=== PATIENT | male | born 1965 | race Caucasian/White ===

== ENCOUNTER → 2023-11-23 10:00 | Outpatient (REF) | payer OTHER, SELFPAY ==
[2023-11-23 10:36] LABS: ALT (SGPT) 26 U/L (0-50); AST (SGOT) 42 U/L (17-59); Albumin 3.7 g/dl (3.5-5.0); Alkaline Phosphatase 117 U/L (38-126); Blood Urea Nitrogen 17 mg/dl (9-20); Calcium 9.3 mg/dl (8.4-10.2); Carbon Dioxide 24 mmol/L (22-30); Chloride 106 mmol/L (98-107); Glucose 84 mg/dl (70-99); HDL Cholesterol 41 mg/dl; LDL Cholesterol, Calculated 52 mg/dl; Potassium 4.4 mmol/L (3.5-5.1); Sodium 138 mmol/L (135-145); Total Cholesterol 106 mg/dl (50-199); Total Protein 6.7 g/dl (6.3-8.2); Triglyceride 68 mg/dl (10-149); Very Low Density Lipoprotein 13 mg/dl (0-30); eGFR > 60.00
[2023-11-23 12:50] LABS: Glycohemoglobin (HgbA1c) 5.6 % (4.0-5.6)
[2023-12-02 09:15] LABS: Coumadin (Warfarin) 0.79 mcg/mL
== END ==
LOC: REG 10:00
PROVIDERS: ATTENDING PHYSICIAN Student in an Organized Health Care Education/Training Program
DX: E11.42 Type 2 diabetes mellitus with diabetic polyneuropathy (principal); Z79.01 Long term (current) use of anticoagulants
CPT/HCPCS: 36415; 80053; 80061; 80375; 83036

== ENCOUNTER 2023-12-03 14:02 | Inpatient (IN) | payer OTHER, SELFPAY ==
[2023-12-03 10:06] VITALS: BP 113/45
--- NOTE | 2023-12-03 10:55 | ED.GENMED ---
History of Present Illness
General
Chief Complaint: Musculo-Skeletal Complaint
Source: patient
Exam Limitations: none
Time Seen by Provider: 12/03/23 10:31
Nursing documentation reviewed up to this point in time: agreed with
Travel History
Have you had any contact with someone who has COVID-19?: No
Do you have any symptoms of coronavirus? Fever > 100 degrees, chills, cough, shortness of breath, sore throat, loss of taste or smell, muscle aches, or headache?: No
History of Present Illness
History of Present Illness:
58-year-old male presents to the ER for evaluation. Patient was sent by [facility] clinic and sent here to the ER.
Patient reports he has a history of a ' clotting disorder,' and olu-vtrypob-cssaachza diabetes. In previous records it is documented that patient is on Coumadin for history of right lower extremity DVT. IT is documented from family practice clinic
patient is a poorly controlled diabetic. He has had an open wound on the plantar surface of his big toe since August 2023 which is gotten progressively worse. There is suspicion for possible osteomyelitis. He has had increasing swelling from
his right foot to his right mata for the past week. He was seen by [facility] yesterday started on antibiotics recommended to come to the ER but presented to the ER this morning.
He denies any fever or chills.
Past History
Past History
ED Past Medical History: None
ED Past Surgical History: None and Tonsilectomy
Social History
Tobacco: Other (tobacco)
Alcohol: Occasional
Employment: Employed
Review of Systems
Review of Systems
Allergies reviewed?: Yes
All Other Systems: ROS reviewed and negative except as documented in HPI and ROS
Constitutional: Reports no symptoms
Respiratory: Reports no symptoms
Cardiac: Reports no symptoms
ABD/GI: Reports no symptoms
: Reports no symptoms
Musculoskeletal: Reports other (swelling to right great toe with swelling to foot and right lower leg + pain )
Skin: Reports no symptoms
Neurological: Reports no symptoms
Hematologic/Lymphatic: Reports no symptoms
Psychiatric: Reports no symptoms
Phy Exam
General Physical Exam
General Presentation: no apparent distress
General age: appears stated age
General Skin: warm and dry
General Habitus: normal
General Mental: alert
General Hydration: appears well hydrated
Cardiovascular Exam
Cardiovascular Exam: regular rate/rhythm, no murmur and normal peripheral pulses
Pulmonary Exam
Pulmonary Exam: lungs clear and no respiratory distress
Neurological Exam
Neurological Exam: alert and oriented x3
Musculoskeletal Exam
Musculoskeletal Exam: other (Right lower extremity strong pulses patient has obvious necrotic looking ulcer to the plantar aspect of the right great toe with swelling of this toe, foul smell there is swelling extending to right foot and right lower
leg with mild redness. No obvious drainage. )
Skin Exam
Skin Exam: normal color and warm/dry
Psychiatric Exam
Psychiatric Exam: normal mood/affect
Course
Orders/Labs/Results
Orders:
Orders
12/03/23 10:53
Cardiac Monitoring- Treatment ONCE
IV Insert/Care/Rem.- Treatment PRN
12/03/23 10:54
Foot, Right 3 View [CR Foot - Right Min 3 Views] Urgent
Comment:
Reason For Exam: right great toe infection
12/03/23 11:09
Cefepime HCl [Maxipime] 1,000 mg IV NOW STA
MetroNIDAZOLE 500 MG/100 ML [Flagyl 500 mg] 100 ml IV NOW
12/03/23 11:13
Complete Blood Count/With Diff Urgent
Comprehensive Metabolic Panel Urgent
Lactic Acid Q4H
Comment: CANCEL 2nd LACTIC ACID IF 1st LACTIC ACID IS LESS THAN 2
Prothrombin Time Urgent
Blood Culture Q30M
SAKINA Source: Blood/Venous
Specimen Description:
Blood Culture Q30M
SAKINA Source: Blood/Venous
Specimen Description:
12/03/23 11:44
Vancomycin [Vancocin] 2,000 mg 0.9% Sodium Chloride 500 ml [Nss] 500 ml IV NOW
12/03/23 13:05
Urinalysis Reflex To Culture Urgent
Date Specimen was Collected: 12/03/23
Time Specimen was Collected: 13:03
12/03/23 13:26
Admit/Transfer Patient As Directed
Co-Sign Provider:
Level of Care: Inpatient admission
Assign to:: Medical/Surgical
Physician / Group: kailee jaffe
Diagnosis: right great toe ulcer
Reason for Hospitalization: right great toe ulcer
Expected length of stay greater than two midnights?: Yes
ELOS- Estimated Length of Stay in days: 3
I certify the patient meets the requirements for IP care: Yes
12/03/23 13:28
Code Status As Directed
Resuscitation Status: Full Code
12/03/23 13:42
MR Right Le Joint W W/o Routine
Comment:
Reason For Exam: right toe, swelling, pain
Recent pill cam endoscopy?: Yes
12/03/23 15:00
Lactic Acid Q4H
Comment: CANCEL 2nd LACTIC ACID IF 1st LACTIC ACID IS LESS THAN 2
Abnormal Lab Results
12/03/23
11:13
RBC 4.19 L 10^6/uL
(4.70-6.10)
Hgb 11.3 L g/dL
(13.0-18.0)
Hct 34.7 L %
(39.0-52.0)
MCHC 32.6 L g/dL
(33.0-37.0)
MPV 10.8 H fL
(7.4-10.4)
Absolute Lymphs (auto) 0.9 L 10^3/uL
(1.2-3.4)
Absolute Monos (auto) 0.8 H 10^3/uL
(0.1-0.6)
Lymphocytes % 13.0 L %
(20.5-51.1)
Monocytes % 11.4 H %
(1.7-9.3)
PT 19.2 H Sec
(11.4-14.6)
Glucose 112 H mg/dl
(70-99)
Alkaline Phosphatase 152 H U/L
(38-126)
12/03/23 11:13
12/03/23 11:13
Vital Signs
Initial and Last Documented VS:
Initial Vital Signs
Temp Pulse Resp BP Pulse Ox
98.3 F 102 18 113/45 99
12/03/23 10:06 12/03/23 10:06 12/03/23 10:06 12/03/23 10:06 12/03/23 10:06
Last Documented Vital Signs
Temp Pulse Resp BP Pulse Ox
98.3 F 98 17 113/45 99
12/03/23 10:06 12/03/23 13:06 12/03/23 13:06 12/03/23 10:06 12/03/23 13:06
Lock Tender Chief Operator consulted with Physician
Lock Tender Chief Operator consulted with physician?: Yes
Name of Physician Consulted: Jacquelyn
MDM/Problems Addressed
Differential Diagnosis Includes:
Not limited to diabetic foot ulcer, cellulitis, osteomyelitis
MDM/Problems Addressed:
Patient is a 58-year-old diabetic male sent to the ER for infected great toenail with worsening swelling of the right foot. Patient presents awake and alert he is in obvious swollen right great toe with necrotic ulcer along the plantar aspect with
foul smell, there is swelling to the entire foot going up to the mata. He denies any fever or chills and has a normal white count normal lactic acid. X-rays show soft tissue swelling bee sting to the right great toe but no convincing evidence on
x-ray for osteomyelitis. Patient will require admission for antibiotic podiatry/Ortho evaluation.
Chronic conditions affecting care:
niddm
*Radiology
Radiology exam reviewed: radiology read reviewed
*Pulse Oximetry
Patient hypoxic: no
*Critical Care Note
Total Time (30-74mins, 75-104mins- exclusive of procedures): Not Applicable
ED Attending Note
-
Portions of this chart may have been created with voice recognition software.� Occasional wrong word or��sound alike� substitutions may have occurred due to the inherent limitations of voice recognition software.
Discharge Plan
Departure
Patient Disposition: Admit
Date of Disposition: 12/03/23
Time of Disposition: 12:23
Admit to: Med/Surg
Admit to doctor: hospitalist
Presentation/result/management discussed w/ accepting MD/DO: Hospitalist
Patient with high blood pressure during this ER visit?: No
Condition: Fair
Covid-19: Not Applicable
Discharge Problem:
Diabetic foot ulcer
Prescriptions:
No Action
atorvastatin [Lipitor] 10 mg Tablet
10 mg PO DAILY
warfarin [Jantoven] 10 mg tablet
5 mg PO DAILY
glipizide 5 mg tablet
5 mg PO BID@0800,1700
cephalexin 500 mg Capsule
500 mg PO QID 7 Days Qty: 28 0RF
Patient Comments:
12/03/2023, pt. filled this med. on 12/02/2023 and is instructed to take one capsule QID for 5 days; per pt., he took first dose of this med. last night (12/02/2023).
acetaminophen [Tylenol Extra Strength] 500 mg Tablet
1,000 mg PO BIDPRN PRN (Reason: mild pain)
cholecalciferol (vitamin D3) 25 mcg (1,000 unit) Tablet
50 mcg PO DAILY
Referrals:
UNKNOWN - PT DOES,NOT KNOW [Family Provider] -
Interventions
Interventions:
*Risk Screen - Suicide Last Done: 12/03/23 11:28
*General Assessment Last Done: 12/03/23 11:28
*Neglect/Abuse Screening Last Done: 12/03/23 11:28
ED- Fall Risk Assessment Last Done: 12/03/23 11:30
*ED COVID-19 Vaccine History Last Done: 12/03/23 11:28
ED-Musculoskeletal Assessment Last Done: 12/03/23 11:30
[2023-12-03 11:27] VITALS: BMI 28.2
[2023-12-03 11:36] LABS: % Basophils 0.7 % (0-2); % Eosinophils 2.9 % (0-6); % Immature Granulocytes 0.3 % (0-0.5); % Monocytes 11.4 % (1.7-9.3); % Neutrophils 71.7 % (42.2-75.2); Absolute Basophils 0.1 10^3/uL (0-0.2); Absolute Eosinophils 0.2 10^3/uL (0-0.7); Absolute Lymphocytes 0.9 10^3/uL (1.2-3.4); Absolute Monocytes 0.8 10^3/uL (0.1-0.6); Hematocrit 34.7 % (39.0-52.0); Hemoglobin 11.3 g/dL (13.0-18.0); Mean Corp Hgb Conc. 32.6 g/dL (33.0-37.0); Mean Corpuscular Volume 82.8 fL (80.0-94.0); Mean Platelet Volume 10.8 fL (7.4-10.4); Nucleated Red Blood Cells % 0 % (-); Platelet Count 173 10^3/uL (130-400); Red Blood Cell Count 4.19 10^6/uL (4.70-6.10); Red Cell Dist. Width 13.4 % (11.5-14.5); White Blood Cell Count 6.9 10^3/uL (4.8-10.8)
[2023-12-03] MEDS: MAXIPIME 1000 MG IV (11:42)
[2023-12-03 11:45] LABS: INR 1.64; PT 19.2 Sec (11.4-14.6)
[2023-12-03] MEDS: FLAGYL 500 MG 100 IV ×2 (11:46→20:22)
[2023-12-03 11:47] LABS: ALT (SGPT) 31 U/L (0-50); AST (SGOT) 33 U/L (17-59); Albumin 3.5 g/dl (3.5-5.0); Alkaline Phosphatase 152 U/L (38-126); Blood Urea Nitrogen 18 mg/dl (9-20); Calcium 8.7 mg/dl (8.4-10.2); Carbon Dioxide 27 mmol/L (22-30); Chloride 106 mmol/L (98-107); Estimated Creatinine Clearance 92 ml/min; Glucose 112 mg/dl (70-99); Lactic Acid 0.8 mmol/L (0.7-2.0); Sodium 137 mmol/L (135-145); Total Protein 6.8 g/dl (6.3-8.2); eGFR > 60.00
[2023-12-03] MEDS: VANCOCIN 540 MG IV (12:58)
--- NOTE | 2023-12-03 13:01 | HPS.HSE ---
Addendum entered and electronically signed by Maricruz Porter MD 12/03/23 15:28:
I saw and examined the patient.
The MANAGER FINE's note was reviewed and I agree with the note.
Comment:
Mr. Titi Farah is a 58 yo man with hx DM2, LE DVT, HLD presents to the ER with acute worsening chronic wound of left great toe. Triage vitals T 98.3, P 102, RR 18, BP 113/45, SpO2 99%. Labs with WBC 6.9, Cr 0.8. Foot X-ray without convincing
evidence of osteomyeltis.
Patient was given Vanc/Cefepime/Flagyl in ER. Will continue. Will admit to medicine with Podiatry consult. MRI ordered. Hold coumadin in anticipation of need for procedure/debridement.
Foot X-Ray
IMPRESSION: Soft tissue swelling adjacent to the right great toe. There is deformity of the outline of the peripheral plantar soft tissues adjacent the great toe, which is likely from ulceration.
Compared to previous right total radiographs, poor definition of the bony margins of the distal phalanx of the right great toe, probably technical rather than due to bone destruction. No convincing evidence for ostial myelitis.
Consider further evaluation with dedicated right great toe radiographs, which may result in better definition of the bones of the right great toe, particularly on the lateral view.
�
Original Note:
Family Physician
-
Family Physician: NOT KNOW UNKNOWN - PT DOES
Chief Complaint
-
left great toe ulcer
History of Present Illness
58-year-old male past medical history for type 2 diabetes, right lower extremity DVT, hyperlipidemia presented to us with open wound on the plantar surface of his great toe. He had this wound since last August. patient stated worsening redness,
pain and swelling. Since discharge in last August, he could not follow-up with podiatry as he could not get any appointment. Patient feels very tired. Denied fever or chills. Patient denied any headache, dizziness, syncopal episode. Patient
denied chest pain, short of breath. Patient denied abdominal pain, nausea, vomiting, diarrhea. Patient denied dysuria hematuria.
Patient was evaluated by residency clinic last night and was sent home on oral antibiotics.
Medical History
Past Medical History
Past Medical History: Reports Other
Additional Past Medical History:
Right lower extremities DVT
Type 2 diabetes
Hyperlipidemia
Past Surgical History: Reports Other
Additional Past Surgical History:
Tonsillectomy
Hydrocele repair
Social History
Tobacco: Smoker (Cigars occasionally)
Alcohol: Occasional
Drug: None
Family History
Family History: Not pertinent
Allergies / Home Medications
Allergies reflects when Allergies were last updated in [facility].
Home Medications with original date entered in [facility]
Allergy/Medication List:
Allergies
Allergy/AdvReac Type Severity Reaction Status Date / Time
Penicillins Allergy Unknown Verified 07/14/23 13:46
Home Medications
atorvastatin 10 mg tablet (Lipitor) 10 mg PO DAILY High Cholesterol 07/14/23
warfarin 10 mg tablet (Jantoven) 5 mg PO DAILY Blood Clot Prevention/Tx 07/14/23
glipizide 5 mg tablet 5 mg PO BID@0800,1700 Diabetes 07/15/23
cephalexin 500 mg capsule 500 mg PO QID 7 days #28 caps 07/17/23
acetaminophen 500 mg tablet (Tylenol Extra Strength) 1,000 mg PO BIDPRN PRN mild pain 12/03/23
cholecalciferol (vitamin D3) 25 mcg (1,000 unit) tablet 50 mcg PO DAILY 12/03/23
Review of Systems
-
Constitutional: Reports No Symptoms
EENT: Reports No Symptoms
Respiratory: Reports No Symptoms
Cardiac: Reports No Symptoms
Abdomen/GI: Reports No Symptoms
: Reports No Symptoms
Musculoskeletal: Reports No Symptoms
Skin: Reports Other (Right great toe wound)
Neurological: Reports No Symptoms
Endocrine: Reports No Symptoms
Hematologic/Lymphatic: Reports No Symptoms
Psych: Reports No Symptoms
Physical Exam
Vital Signs
Vital Signs
Temp Pulse Resp BP Pulse Ox
98.3 F 102 18 113/45 99
12/03/23 10:06 12/03/23 10:06 12/03/23 10:06 12/03/23 10:06 12/03/23 10:06
Physical Exam
General: Well Developed, Well Nourished and No Apparent Distress
HEENT: NormoCephalic, Moist mucous membranes and Atraumatic
Respiratory: Clear
Cardiac: S1/S2 and Regular Rhythm; No Murmur or Rub
GI: Soft, Non Tender, Non Distended and Normal Bowel Sounds; No Organomegaly
Rectal: Deferred by Provider
Musculoskeletal: No Clubbing, No Cyanosis and No Edema
Skin: Rash and Other (Right lower extremitynecrotic looking ulcer to the plantar aspect of the right great toe with swelling of this toe, foul smell there is swelling extending to right foot and right lower leg with mild redness.)
Neuro: AO x 3 and Nonfocal/grossly intact
Psych: Calm
Laboratory Results
-
12/03/23 11:13
12/03/23 11:13
Laboratory Results
PT 19.2 Sec (11.4-14.6) H 12/03/23 11:13
INR 1.64 12/03/23 11:13
Lactic Acid 0.8 mmol/L (0.7-2.0) 12/03/23 11:13
Total Bilirubin 1.0 mg/dl (0.2-1.3) 12/03/23 11:13
AST 33 U/L (17-59) 12/03/23 11:13
ALT 31 U/L (0-50) 12/03/23 11:13
Alkaline Phosphatase 152 U/L (38-126) H 12/03/23 11:13
Data Reviewed
-
Lab Data: Labs Reviewed by me
Impression/Plan
-
#diabetic great toe ulcer
-Foot x-ray with Soft tissue swelling adjacent to the right great toe. There is deformity of the outline of the peripheral plantar soft tissues adjacent the great toe, which is likely from ulceration.Compared to previous right total radiographs,
poor definition of the bony margins of the distal phalanx of the right great toe, probably technical rather than due to bone destruction. No convincing evidence for ostial myelitis.
-Blood culture sent from ER
-iv cefepime, vanco and Flagyl
-Tylenol prn for fever
-Podiatry consulted
# Anemia of chronic disease
-Hemoglobin 11.3
-No active bleeding
-Continue to monitor
#�History of right lower extremity DVT
-hold Coumadin in anticipation of surgical intervention
# HLD
-statin continued
#type 2 Dm
-sliding scale
-CHO diet
-hold glipizide
#Full code
#DVT prophylaxis�Coumadin
[2023-12-03 13:05] VITALS: BP 131/82
[2023-12-03 13:48] LABS: Urine Albumin Negative (Neg - Trace); Urine Bilirubin 1+ (Negative); Urine Character Clear (Clear); Urine Color Yellow; Urine Glucose Negative (Negative); Urine Ketone Negative (Negative); Urine Leukocyte Trace (Negative); Urine Nitrite Negative (Negative); Urine Occult Blood Trace (Negative); Urine Urobilinogen 3+ (Neg - 1+)
[2023-12-03 14:00] VITALS: BP 121/83
[2023-12-03 14:02] LABS: Urine Bacteria Many (Negative); Urine Red Blood Cell 0-2 /HPF (0-2); Urine White Cell 0-2 /HPF (0-5)
--- NOTE | 2023-12-03 16:59 | PHA.VAN.IN ---
Assessment
- Assessment
Renal Function: Appears similar to baseline
Concomitant Antimicrobials: cefepime
AUC Dosing Plan
- Dosing Variables
Dosing Weight (kg): 79.2
Dosing CrCl (ml/min): 92
Vd coefficient (L/kg): 0.7
- Empiric Dosing
Initial / Loading Dose: vanc 2000mg
Maintenance Regimen: vanc 1000mg Q12 starting 12/03 06
Estimated AUC (mcg*h/mL): 465
Estimated Peak (mcg*h/mL): 29.1
Estimated Trough (mcg/ml): 12
Estimated Half Life (H): 8.6
- Monitoring
No levels ordered at this time: consider levels in next few days
Pharmacokinetics Vancomycin I
- -
Patient Age: 58
Patient Sex: Male
Vancomycin Day #: 1
Indication: Skin And Soft Tissue
Requesting Provider: Rachael Valencia
Pertinent Antimicrobial Allergies:
penicillin - unknown
Height / Weight:
Height 5 ft 6 in
Actual Weight 79.2 kg
- Vital Signs / Lab Results
Temp Pulse Resp BP Pulse Ox
98.3 F 93 21 121/83 95
12/03/23 10:06 12/03/23 14:15 12/03/23 14:15 12/03/23 14:00 12/03/23 14:15
Lab Results - Hematology
12/03/23
11:13
WBC 6.9
Lab Results - Chemistry
12/03/23
11:13
BUN 18
Creatinine 0.8
Estimated Creat Clear 92
Albumin 3.5
12/03/23
11:13
Lactic Acid 0.8
Lab Results - Urine
12/03/23
13:05
Urine Nitrite (Reflex) Negative
Leukocyte Esterase Rfl Trace A
Urine WBC (Reflex) 0-2
Urine Bacteria (Reflex) Many A
[2023-12-03 17:10] VITALS: BMI 28.1
[2023-12-03 17:11] VITALS: BP 111/72
[2023-12-03 17:36] LABS: Glucose - Point of Care 94 mg/dl (70-99)
--- NOTE | 2023-12-03 17:50 | PTCARENOTE ---
Received pt from R via stretcher; accompanied by ER staff. Pt AAO x3, YATES well, ambulatory to bed without assistance; gait steady. pt very angry/irritable re: admission; stated 'I f the fruit trimmer would have seen me this would never have
happened!'. VSS. On room air- pulse ox 98%. Abd soft, rounded, to start 2000 rashel diet. Pt DTV; stated he will void in BR. RT great toe dusky /reddened with dark/open area with dry callus posterior toe; RLR reddened, +1 edema. DSD applied to Rt
great toe site. Oriented to 4east, currently resting in bed. Will continue to monitor.
[2023-12-03] MEDS: STERILE WATER FOR INJECTION 10 ML IV (20:22)
[2023-12-03] MEDS: MAXIPIME 2000 MG IV (20:22)
[2023-12-03] MEDS: FLUSH (NSS) 1 FLUSH IV (20:23)
[2023-12-03 21:31] LABS: Glucose - Point of Care 129 mg/dl (70-99)
[2023-12-03 23:41] VITALS: BP 109/71
[2023-12-04] MEDS: FLAGYL 500 MG 100 IV ×3 (04:14→20:51)
[2023-12-04] MEDS: STERILE WATER FOR INJECTION 10 ML IV ×3 (04:15→20:36)
[2023-12-04] MEDS: MAXIPIME 2000 MG IV ×3 (04:19→20:36)
[2023-12-04] MEDS: VANCOCIN 200 IV ×2 (05:51→18:01)
[2023-12-04 07:00] VITALS: BP 122/73
[2023-12-04 07:40] LABS: Glucose - Point of Care 138 mg/dl (70-99)
[2023-12-04 07:53] LABS: INR 1.73; PT 20.4 Sec (11.4-14.6)
[2023-12-04 08:04] LABS: Hematocrit 31.2 % (39.0-52.0); Hemoglobin 10.2 g/dL (13.0-18.0); Mean Corp Hgb Conc. 32.7 g/dL (33.0-37.0); Mean Corpuscular Hgb 27.4 pg (27.0-31.0); Mean Corpuscular Volume 83.9 fL (80.0-94.0); Platelet Count 153 10^3/uL (130-400); Red Blood Cell Count 3.72 10^6/uL (4.70-6.10); Red Cell Dist. Width 13.4 % (11.5-14.5); White Blood Cell Count 6.5 10^3/uL (4.8-10.8)
[2023-12-04 08:13] LABS: Blood Urea Nitrogen 18 mg/dl (9-20); Calcium 8.3 mg/dl (8.4-10.2); Carbon Dioxide 23 mmol/L (22-30); Chloride 105 mmol/L (98-107); Estimated Creatinine Clearance 92 ml/min; Glucose 109 mg/dl (70-99); Potassium 4.1 mmol/L (3.5-5.1); Sodium 137 mmol/L (135-145); eGFR > 60.00
[2023-12-04] MEDS: TYLENOL 1000 MG PO ×2 (08:33→19:28)
[2023-12-04] MEDS: LIPITOR 10 MG PO (08:37)
--- NOTE | 2023-12-04 08:46 | W.PN.UPDATE ---
Update Note
Progress Note Update
Patient seen on AM rounds. Full consult note to follow.
Plan for OR tomorrow under the direction of Dr. Logan for right hallux amputation. NPO after midnight.
--- NOTE | 2023-12-04 08:55 | W.PN.HOSP.TC ---
Addendum entered and electronically signed by Won Cardenas MD 12/04/23 13:53:
Patient seen and examined
Discussed with resident
Discussed with infectious disease service
Impression/plan:
Right great toe diabetic ulcer with osteomyelitis
Type 2 diabetes
Tobacco use disorder smokes cigars
Chronic lower extremity DVT on anticoagulation with Coumadin.
No evidence of generalized infection.
MRI with confirmation of osteomyelitis.
Initiated on empiric antibiotics will continue.
For right hallux amputation on 12/04.
Follow path and culture.
Check arterial ultrasound
Type 2 diabetes
Noted improvement of hemoglobin A1c from 11-5.
Glipizide has been on hold pending OR/n.p.o. status
Continue corrective insulin with serial Accu-Cheks
Will consider to start metformin and avoid sulfonylureas given risk for hypoglycemia (reported as outpatient)
Lower extremity DVT.
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
Follow INR.
Patient currently insured
Case management consultation with factor Xa inhibitor pricing (Xarelto Eliquis)
Original Note:
Today's Communication/Plan
-
right hallux amputation
hold off warfarin
consider eliquis /xeralto after surgery
reconsider diabetic mediation regimen
Assessment / Plan
Assessment / Plan
IMPRESSION
Right hallux osteomyelitis
DM type 2 with neuropathy
History of right lower extremity DVT
PLAN
Right hallux osteomyelitis with cellulitis
-ID folllowing
- Blood cultures prelim no growth, final report pending
- Ordered arterial US with JASMIN to r/o PVD
-Plan for right hallux amputation tomorrow per Ortho, NPO after midnight
- Might not need abx after surgery if the source of infection is removed
- Continue IV zosyn for now - day 2
- Monitor temp curve, WBC.
-
DM type 2 with neuropathy
- Reconsider diabetic medication regimen
- On insulin sliding scale, hold glipizide
- Plan is to restart metformin 500 mg BID on discharge and discontinue glipizide to prevent hypoglycemia.
History of right lower extremity DVT
- hold off warfarin prior to surgery
- considering starting Eliquis or Xeralto after surgery to avoid monitoring PT/INR with warfarin
talked to family preservation caseworker about it
DVT ppx - hold warfarin prior to surgery tomorrow
Imaging :
12/03/2023 x-ray right foot: Focal soft tissue swelling involving the great toe.� Soft tissue deformity of the plantar soft tissues suggesting ulceration.� Bony definition on the lateral radiograph is poor, but no gross evidence for bony destruction.
12/03/2023 MRI right lower extremity: Acute osteomyelitis involving the entire first proximal phalanx and first distal phalanx.� There is a plantar medial first toe wound with a tract that extends directly to the first interphalangeal joint.� There
is a large amount of cellulitis around the first toe and a possible small focus of osteomyelitis in the head of the first metatarsal although this is noted to be less specific and could be degenerative in nature.
Anticipated Discharge: 24 - 48 hours
Subjective/Interval History
-
Date of Service: December 04, 2023
58-year-old male past medical history for type 2 diabetes, right lower extremity DVT, hyperlipidemia presented to us with open wound on the plantar surface of his right great toe.� He had this wound since last August. Patient stated worsening
redness, pain and swelling.� He was admitted in July 2023 for diabetic right foot infection associated with right great toe cellulitis with blister and callus in the medial hallux. He underwent R foot callus debridement by podiatry. He was
initially with vancomycin, cefepime, Flagyl; and these were changed to oral Keflex 500 mg and wound care upon discharge. Since discharge, he could not follow-up with podiatry as he could not get any appointment.�He admits feeling tired. � Denied
fever or chills.� Patient denied any headache, dizziness, syncopal episode.� Patient denied chest pain, short of breath.� Patient denied abdominal pain, nausea, vomiting, diarrhea.� Patient denied dysuria hematuria.
Patient was evaluated in Family medicine residency clinic last night and was sent home on oral antibiotics ( cephalexin 500 mg PO ) .
PCP - Dr Digna Sequeira.
Patient is furious that he will not be able to work after surgery.
Objective Data
-
Labs:
Laboratory Results
12/04/23
06:20
WBC 6.5
Hgb 10.2 L
Hct 31.2 L
Plt Count 153
PT 20.4 H
INR 1.73
Sodium 137
Potassium 4.1
Chloride 105
Carbon Dioxide 23
BUN 18
Creatinine 0.8
Glucose 109 H
Calcium 8.3 L
Vital Signs:
Vital Signs
Temp Pulse Resp BP Pulse Ox
99.3 F 83 16 109/71 99
12/03/23 23:41 12/03/23 23:41 12/03/23 23:41 12/03/23 23:41 12/03/23 23:41
I&O
12/03/23 12/04/23 12/05/23
06:59 06:59 06:59
Intake Total 440 / 440
Balance 440 / 440
Review of Systems
-
History Source: Patient
All other systems: Reviewed and negative
Psych: Reports Other (furious, irritated)
Physical Exam
-
General: Appears in Distress and Other (frustrated, furious )
HEENT: Normocephalic and Atraumatic
Respiratory: Clear to Auscultation
Cardiac: Regular Rhythm and S1/S2
Musculoskeletal: Other (edema iin right feet > left, jeanne wrapped )
Data Reviewed
-
Diagnostic Radiology: Report Reviewed by me and Discussed with Physician
Labs: Labs Reviewed by me and Discussed with Physician
--- NOTE | 2023-12-04 09:18 | PHA.VAN.FU ---
Vancomycin Assessment / Plan
- Assessment
Renal Function: Stable
WBC's are: WNL
In the past 24 hrs, patient has been: Afebrile
Concomitant Antimicrobials: cefepime, metronidazole
- Dosing Plan
Continue: Vanc 1000mg Q12H
- Monitoring Plan
No level(s) ordered at this time: consider levels in next few days
- Follow Up
Pharmacy will continue to follow.
Vancomycin Follow UP
- -
Patient Age: 58
Patient Sex: Male
Vancomycin Day #: 2
Indication: Skin And Soft Tissue
Requesting Provider: Rachael Valencia
Pertinent Antimicrobial Allergies:
penicillin - unknown
Height / Weight:
Height 5 ft 6 in
Actual Weight 79.061 kg
Pertinent Past Medical History: DM 2
- Vital Signs / Lab Results
Temp Pulse Resp BP Pulse Ox
99.3 F 83 16 109/71 99
12/03/23 23:41 12/03/23 23:41 12/03/23 23:41 12/03/23 23:41 12/03/23 23:41
Lab Results - Hematology
12/03/23 12/04/23
11:13 06:20
WBC 6.9 6.5
Lab Results - Chemistry
12/03/23 12/04/23
11:13 06:20
BUN 18 18
Creatinine 0.8 0.8
Estimated Creat Clear 92 92
Albumin 3.5
12/03/23 12/03/23
11:13 15:00
Lactic Acid 0.8 Cancelled
Lab Results - Urine
12/03/23
13:05
Urine Nitrite (Reflex) Negative
Leukocyte Esterase Rfl Trace A
--- NOTE | 2023-12-04 11:19 | CON.ORTHO ---
Consultation
-
Date/Time Consultation Requested: 12/03/2023; time unknown
Date/Time Consultation Performed: 12/04/2023; 0730
Requesting Provider: unknown
Performing Provider: Faby Gordon PA-C for Dr. Cyril Logan
Reason for Consultation: Right great toe infection
Consultation - Orthopedics
History
Mr. Farah is a 58 year old male with PMH of DMII, RLE DVT, HLD and bilateral peripheral neuropathy. He is seen today for evaluation of his right great toe. He reports he developed cellulitis and a blister on his great toe in August 2023.
He was seen and evaluated at [facility] and was advised to follow up with outpatient podiatry. He reports since his insurance activated on September 16, he was unable to secure an appointment with podiatry. He has noticed progressively
worsening redness, swelling and pain about his great toe. He endorses a wound on the plantar aspect of his great toe that has been draining.
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 He ambulates without assistance at baseline. He has been on Warfarin since his DVT this past fall.
Allergies / Home Medications
Allergy/AdvReac Type Severity Reaction Status Date / Time
Penicillins Allergy Unknown Verified 07/14/23 13:46
Medication Instructions Recorded
atorvastatin 10 mg tablet (Lipitor) 10 mg PO DAILY High Cholesterol 07/14/23
warfarin 10 mg tablet (Jantoven) 5 mg PO DAILY Blood Clot 07/14/23
Prevention/Tx
glipizide 5 mg tablet 5 mg PO BID@0800,1700 Diabetes 07/15/23
cephalexin 500 mg capsule 500 mg PO QID 7 days #28 caps 07/17/23
acetaminophen 500 mg tablet 1,000 mg PO BIDPRN PRN mild pain 12/03/23
(Tylenol Extra Strength)
cholecalciferol (vitamin D3) 25 50 mcg PO DAILY 12/03/23
mcg (1,000 unit) tablet
Vital Signs / Lab Results
Temp Pulse Resp BP Pulse Ox
99.3 F 83 16 109/71 99
12/03/23 23:41 12/03/23 23:41 12/03/23 23:41 12/03/23 23:41 12/03/23 23:41
12/04/23 06:20
12/04/23 06:20
XR Right Foot 12/03/23 IMPRESSION:
Soft tissue swelling adjacent to the right great toe. There is deformity of the outline of the peripheral plantar soft tissues adjacent the great toe, which is likely from ulceration.
Compared to previous right total radiographs, poor definition of the bony margins of the distal phalanx of the right great toe, probably technical rather than due to bone destruction. No convincing evidence for ostial myelitis.
MRI Right Foot 12/03/2023 IMPRESSION:
Acute osteomyelitis involving the entire first proximal phalanx and first distal phalanx. Plantar medial first toe wound with a tract that extends directly to the first interphalangeal joint. Large amount of cellulitis about the first toe. Possible
small focus of osteomyelitis in the head of the first metatarsal, although this is less specific and could be degenerative.
Directed exam of the right lower extremity reveals bandages with purulent drainage. Open wound on the plantar aspect of the right great toe with eschar/necrotic tissue surrounding the wound. Purulent drainage from the wound. Patient lacks sensation
to light touch throughout the foot. Strong pedal pulses.
Assessment / Plan
Right hallux osteomyelitis, plantar foot wound
--Unfortunately, MRI reveals osteomyelitis involving his right proximal and distal phalanges. This will require surgical intervention with right hallux amputation and possible ray amputation. The risks, benefits, recovery process and potential
complications were discussed in detail. Surgical and blood consents are signed and in the patient's chart. We will plan to proceed with OR tomorrow (12/04) under the direction of Dr. Logan.
--NPO after midnight for OR 12/04.
--NWB to RLE until surgery.
--Continue pain control per primary.
--Continue antibiotics per primary/ID.
--Orthopedics will continue to follow.
--- NOTE | 2023-12-04 11:42 | CON.ID ---
Consultation
-
Date/Time Consultation Requested: 12/03/2023 1716
Date/Time Consultation Performed: 12/04/2023 1118
Requesting Provider: Rachael Valencia
Performing Provider: Dr. Gray
Reason for Consultation: Right hallux osteomyelitis
Chief Complaint / Past History
History of Present Illness
Titi Farah is a 58-year-old man being evaluated at the request of Rachael Valencia regarding right hallux osteomyelitis. History is obtained from chart review, along with patient interview. Patient has significant history of diabetes mellitus, and is
known to the Infectious Diseases service, having been seen in late June 2023 for right hallux cellulitis. Cultures at that time grew out Staph aureus, and the patient was discharged home on oral Keflex for an additional 7 days of therapy. At
that time he was advised close follow-up with Podiatry. He notes following discharge he had issues with insurance coverage and then reports he tried to make appointments with Podiatry practices, but was unable to.
He reports that over the past 2 weeks he has had increasing leg swelling along with redness of the right lower extremity. He denies any recent fevers or chills, but notes he overall did not feel well. He noted increasing pain in the toe area,
ultimately increasing to 8/10. He was seen on 12/01 in the family practice clinic and was advised to come to the emergency room for further evaluation. He denies any groin pain. He denies any other wounds on his body.
Past History
Additional Past Medical History:
DM
Neuropathy
Hx DVT
Additional Past Surgical History:
Tonsillar
Pilonidal cyst
Allergy History:
Penicillins Allergy (Verified 07/14/23 13:46)
Rash, 'throat swelling' at age 7
Tolerates Keflex without issue
Medications Reviewed: Yes
Current Antibiotics:
Vancomycin
Cefepime
Metronidazole
Social History
Tobacco: Other (Occasional cigar use)
Alcohol: None
Drug: None
Personal: Single
Living: Alone
Employment: Employed
Family History
Family History: Not Pertinent
Review of Systems
Vital Signs
Temp Pulse Resp BP Pulse Ox
99.3 F 83 16 109/71 99
12/03/23 23:41 12/03/23 23:41 12/03/23 23:41 12/03/23 23:41 12/03/23 23:41
Physical Exam
Physical Exam
Constitutional: No Acute Distress, Comfortable and Non-toxic
Head: Normocephalic
Eyes: Pupils Equal, Pupils Round, No Conjunctival Hemorrhage and Sclera Anicteric
Oral: No Thrush and No Ulcers
Cardiovascular: S1/S2; Negative S3/S4 or Murmur
Pulmonary: Non Labored; Negative Wheezes, Rales or Rhonchi
Gastrointestinal: Soft, Non Tender and Non Distended
Extremities: Edema (Right lower extremity; 2+), Erythema (Right lower extremity; mild) and Pulses
Wound: Other (Inferior right hallux)
Neurological: Awake and Alert
Psychological: Calm
Lab / Diagnostic Study Results
12/04/23 06:20
12/04/23 06:20
Abs Immat Gran (auto) 0.0 10^3/uL (0-0.05) 12/03/23 11:13
Absolute Neuts (auto) 5.0 10^3/uL (1.4-6.5) 12/03/23 11:13
Absolute Lymphs (auto) 0.9 10^3/uL (1.2-3.4) L 12/03/23 11:13
Absolute Monos (auto) 0.8 10^3/uL (0.1-0.6) H 12/03/23 11:13
Absolute Basos (auto) 0.1 10^3/uL (0-0.2) 12/03/23 11:13
Immature Gran % 0.3 % (0-0.5) 12/03/23 11:13
Neutrophils % 71.7 % (42.2-75.2) 12/03/23 11:13
Lymphocytes % 13.0 % (20.5-51.1) L 12/03/23 11:13
Monocytes % 11.4 % (1.7-9.3) H 12/03/23 11:13
Eosinophils % 2.9 % (0-6) 12/03/23 11:13
Basophils % 0.7 % (0-2) 12/03/23 11:13
PT 20.4 Sec (11.4-14.6) H 12/04/23 06:20
INR 1.73 12/04/23 06:20
Lactic Acid Cancelled 12/03/23 15:00
Microbiology Results
Micro:
12/03/23 13:05 Urine Culture - Final
Urine NO GROWTH
12/03/23 11:13 Blood Culture - Preliminary
Blood/Venous No Growth in 24 hours- Final report to follow
12/03/23 11:13 Blood Culture - Preliminary
Blood/Venous No Growth in 24 hours- Final report to follow
12/03/23 17:57 MRSA Screen - Pending
Nose
Imaging:
12/03/2023 x-ray right foot: Focal soft tissue swelling involving the great toe. Soft tissue deformity of the plantar soft tissues suggesting ulceration. Bony definition on the lateral radiograph is poor, but no gross evidence for bony destruction.
12/03/2023 MRI right lower extremity: Acute osteomyelitis involving the entire first proximal phalanx and first distal phalanx. There is a plantar medial first toe wound with a tract that extends directly to the first interphalangeal joint. There
is a large amount of cellulitis around the first toe and a possible small focus of osteomyelitis in the head of the first metatarsal although this is noted to be less specific and could be degenerative in nature.
Assessment / Plan
Right hallux osteomyelitis
Right foot cellulitis
DM with neuropathy
Recommendations:
Continue with empiric antibiotics for the present.
Patient scheduled for tentative hallux amputation on 12/05/2023
--> Please send proximal margin for pathology and please send bone sample from the ulcer area for culture.
Will check sed rate and CRP in AM.
Follow Vanco levels.
Monitor white count and temperature curve.
[2023-12-04 12:27] LABS: Glucose - Point of Care 118 mg/dl (70-99)
[2023-12-04 15:00] VITALS: BP 116/69
--- NOTE | 2023-12-04 16:00 | CM ---
Alert awake oriented patient who lives alone in a 1 story home with 0 step to enter and 14 steps to bed and bathroom. He is independent in driving and in all activities of daily living.He said he has no support or friends.He needs surgery. He was
offered VN he is unsure what he wants at dc.
No VN/SNF history
Pharmacy [facility]
PCP He [facility]
PLAN will m need Post op PT OT for dc plan
[2023-12-04 17:43] LABS: Glucose - Point of Care 204 mg/dl (70-99)
[2023-12-04 22:02] LABS: Glucose - Point of Care 125 mg/dl (70-99)
[2023-12-04 23:00] VITALS: BP 115/71
[2023-12-05] VITALS (13 sets, daily range): BP systolic 93–138; BP diastolic 63–92
[2023-12-05] MEDS: STERILE WATER FOR INJECTION 10 ML IV ×3 (04:41→20:46)
[2023-12-05] MEDS: MAXIPIME 2000 MG IV ×3 (04:41→20:46)
[2023-12-05] MEDS: FLAGYL 500 MG 100 IV ×3 (04:44→20:46)
[2023-12-05 05:56] LABS: Glucose - Point of Care 91 mg/dl (70-99)
[2023-12-05] MEDS: VANCOCIN 200 IV ×2 (06:24→18:17)
[2023-12-05 06:55] LABS: Hematocrit 34.3 % (39.0-52.0); Hemoglobin 11.2 g/dL (13.0-18.0); Mean Corp Hgb Conc. 32.7 g/dL (33.0-37.0); Mean Corpuscular Hgb 26.9 pg (27.0-31.0); Mean Corpuscular Volume 82.3 fL (80.0-94.0); Mean Platelet Volume 10.6 fL (7.4-10.4); Platelet Count 169 10^3/uL (130-400); Red Blood Cell Count 4.17 10^6/uL (4.70-6.10); Red Cell Dist. Width 13.2 % (11.5-14.5); White Blood Cell Count 5.7 10^3/uL (4.8-10.8)
[2023-12-05 07:01] LABS: INR 1.74; PT 20.5 Sec (11.4-14.6)
[2023-12-05 07:22] LABS: Blood Urea Nitrogen 16 mg/dl (9-20); Calcium 8.4 mg/dl (8.4-10.2); Carbon Dioxide 24 mmol/L (22-30); Chloride 108 mmol/L (98-107); Estimated Creatinine Clearance 105 ml/min; Glucose 107 mg/dl (70-99); Potassium 4.2 mmol/L (3.5-5.1); Sodium 137 mmol/L (135-145); eGFR > 60.00
[2023-12-05 08:20] LABS: Glucose - Point of Care 120 mg/dl (70-99)
--- NOTE | 2023-12-05 08:20 | PHA.VAN.FU ---
Vancomycin Assessment / Plan
- Assessment
Renal Function: Stable
WBC's are: WNL
In the past 24 hrs, patient has been: Afebrile
Concomitant Antimicrobials: cefepime, metronidazole
- Dosing Plan
Continue: Vanc 1000mg Q12H
- Monitoring Plan
Peak Level: 12/04 20:30
Trough Level: 12/05 05:30
Monitoring Comments: levels to be drawn after 4th maintenance dose
- Follow Up
Pharmacy will continue to follow.
Vancomycin Follow UP
- -
Patient Age: 58
Patient Sex: Male
Vancomycin Day #: 3
Indication: Skin And Soft Tissue
Requesting Provider: Rachael Gray
Pertinent Antimicrobial Allergies:
penicillin - unknown
Height / Weight:
Height 5 ft 6 in
Actual Weight 79.061 kg
Pertinent Past Medical History: DM 2
- Vital Signs / Lab Results
Temp Pulse Resp BP Pulse Ox
99.3 F 79 16 115/71 99
12/04/23 23:00 12/04/23 23:00 12/04/23 23:00 12/04/23 23:00 12/04/23 23:00
Lab Results - Hematology
12/03/23 12/04/23 12/05/23
11:13 06:20 06:33
WBC 6.9 6.5 5.7
Lab Results - Chemistry
12/03/23 12/04/23 12/05/23
11:13 06:20 06:33
BUN 18 18 16
Creatinine 0.8 0.8 0.7
Estimated Creat Clear 92 92 105
Albumin 3.5
12/03/23 12/03/23
11:13 15:00
Lactic Acid 0.8 Cancelled
Microbiology Results
12/03/23 13:05 Urine Culture - Final
Urine NO GROWTH
12/03/23 11:13 Blood Culture - Preliminary
Blood/Venous No Growth in 24 hours- Final report to follow
12/03/23 11:13 Blood Culture - Preliminary
Blood/Venous No Growth in 24 hours- Final report to follow
[2023-12-05] MEDS: LIPITOR 10 MG PO (09:41)
--- NOTE | 2023-12-05 09:45 | PTCARENOTE ---
Pt returned from OR/PACU via bed. accompanied by PACU staff. Pt AAO x3, TRUDY well, OOB to BR with assistance to void- refused urinal. VSS. Lt for DP pulse weak; unable to assess RT foot pulses d/t post op dsg/KENNETH wrap. Sensation to Rt toes (+);
able to move Rt toes. On room- air- pulse ox 98%, no SOB noted. Abd soft, to resume 2000 rashel diet. Voided in BR upon arrival to unit. RT foot dsg D/I. Resting in bed at present; angry/irritable, no c/o. Will continue to monitor.
--- NOTE | 2023-12-05 10:02 | W.PN.HOSP.TC ---
Addendum entered and electronically signed by Won Cardenas MD 12/05/23 15:24:
Patient seen and examined
Discussed with resident
Impression/plan
Diabetes wound with right hallux osteomyelitis status post amputation today
Continue antibiotics pending surgical cultures and pathology.
Diabetes type 2 with improved blood glucose management, improved hemoglobin A1c.
Patient reports hypoglycemic episodes while on glipizide prior to presentation
Continue basal bolus protocol with serial Accu-Cheks
Plan to reinstate oral medications with metformin
Plan milligram twice daily
Chronic lower extremity DVT.
Resume anticoagulation on 12/05.
In discussion with patient as well as case management in terms of insurance coverage, Pradaxa would be most optimal choice at this point
Original Note:
Today's Communication/Plan
-
wait for cultures
start Pradaxa tomorrow
monitor overnight
metformin 500 mg BID
insulin sliding scale
Monitor BG
Assessment / Plan
Assessment / Plan
IMPRESSION
Right hallux osteomyelitis
DM type 2 with neuropathy
History of right lower extremity DVT
PLAN
Right hallux osteomyelitis with cellulitis/ diabetic foot infection
-ID and ortho following
- Amputation of right great toe 12/04
- Blood cultures prelim no growth, final report pending
- Wound culture pending
- Might not need abx after surgery if the source of infection is removed
- Continue IV zosyn for now - day 3
- Monitor temp curve, WBC.
- monitor overnight
-
DM type 2 with neuropathy
- Reconsider diabetic medication regimen
- On insulin sliding scale, hold glipizide
- Restart metformin 500 mg BID PO, check BG levels and adjust sliding scale
- BG level after starting metformin will determine if the patient needs more medication for DM
History of right lower extremity DVT
- talked to patient about switching to dabigatran (Pradaxa). Patient is ok, will start tomorrow, confirmed with ortho
- eliquis .xeralto not under insurance coverage
DVT ppx - hold warfarin prior to surgery tomorrow
Imaging :
12/03/2023 x-ray right foot: Focal soft tissue swelling involving the great toe.� Soft tissue deformity of the plantar soft tissues suggesting ulceration.� Bony definition on the lateral radiograph is poor, but no gross evidence for bony destruction.
12/03/2023 MRI right lower extremity: Acute osteomyelitis involving the entire first proximal phalanx and first distal phalanx.� There is a plantar medial first toe wound with a tract that extends directly to the first interphalangeal joint.� There
is a large amount of cellulitis around the first toe and a possible small focus of osteomyelitis in the head of the first metatarsal although this is noted to be less specific and could be degenerative in nature.
Anticipated Discharge: Within 24 hours
Subjective/Interval History
-
Date of Service: December 05, 2023
Patient continues to be frustrated about the whole event and he is upset that he wont be able to drive home by himself. He also states that ' he does not have any food at home'.
Objective Data
-
Labs:
Laboratory Results
12/05/23
06:33
WBC 5.7
Hgb 11.2 L
Hct 34.3 L
Plt Count 169
PT 20.5 H
INR 1.74
Sodium 137
Potassium 4.2
Chloride 108 H
Carbon Dioxide 24
BUN 16
Creatinine 0.7
Glucose 107 H
Calcium 8.4
Vital Signs:
Vital Signs
Temp Pulse Resp BP Pulse Ox
97.6 F 85 16 137/92 98
12/05/23 09:20 12/05/23 09:20 12/05/23 09:20 12/05/23 09:20 12/05/23 09:20
I&O
12/04/23 12/05/23 12/06/23
06:59 06:59 06:59
Intake Total 440 / 440 200 / 200
Balance 440 / 440 200 / 200
Review of Systems
-
All other systems: Reviewed and negative (except memtioned)
Psych: Reports Other (frustrated )
Data Reviewed
-
Labs: Labs Reviewed by me and Discussed with Physician
[2023-12-05] MEDS: FLUSH (NSS) 1 FLUSH IV ×2 (12:03→18:17)
[2023-12-05 12:17] LABS: Glucose - Point of Care 188 mg/dl (70-99)
--- NOTE | 2023-12-05 12:39 | CM ---
OR today for right Allax amputation .
Will need PT OT ordered postop. to assist with dc planning.
Pt aid he has no support at home.
He is independent and drives [employer].
PLAn Will need PT OT for dc plan
--- NOTE | 2023-12-05 16:31 | PTCARENOTE ---
Pt AAO x3, irritable at times YATES well, ambulatory to BR, denies weakness/dizziness. pt wears Rt foot surgical shoe when OOB. VSS. On room air- pulse ox 98%. Abd soft, sole PO well. Voiding in BR without difficulty. Rt foot dsg/KENNETH wrap D/I;
toes pink/warm/(+) movement/sensation. Unable to assess Rt foot pulses d/t post-op dsg/KENNETH wrap. Pt keeping RLE elevated on pillow. Resting comfortably at present. Will continue to monitor.
[2023-12-05 16:50] LABS: Glucose - Point of Care 178 mg/dl (70-99)
[2023-12-05] MEDS: GLUCOPHAGE 500 MG PO (18:17)
[2023-12-05] MEDS: TYLENOL 1000 MG PO (20:50)
[2023-12-05 21:06] LABS: Glucose - Point of Care 230 mg/dl (70-99)
[2023-12-05 21:27] LABS: Vancomycin Peak 20.1 ug/ml (18-26)
[2023-12-05] MEDS: DILAUDID 0.25 MG IV (23:31)
[2023-12-06 03:45] VITALS: BP 107/64
[2023-12-06] MEDS: FLAGYL 500 MG 100 IV ×3 (04:02→20:34)
[2023-12-06] MEDS: STERILE WATER FOR INJECTION 10 ML IV ×3 (04:03→20:35)
[2023-12-06] MEDS: MAXIPIME 2000 MG IV ×3 (04:04→20:35)
[2023-12-06] MEDS: VANCOCIN 200 IV (06:41)
[2023-12-06 06:43] LABS: Hematocrit 32.6 % (39.0-52.0); Hemoglobin 10.7 g/dL (13.0-18.0); Mean Corp Hgb Conc. 32.8 g/dL (33.0-37.0); Mean Corpuscular Hgb 26.5 pg (27.0-31.0); Mean Corpuscular Volume 80.7 fL (80.0-94.0); Mean Platelet Volume 10.8 fL (7.4-10.4); Platelet Count 179 10^3/uL (130-400); Red Blood Cell Count 4.04 10^6/uL (4.70-6.10); Red Cell Dist. Width 13.1 % (11.5-14.5); White Blood Cell Count 7.1 10^3/uL (4.8-10.8)
[2023-12-06 06:54] LABS: INR 1.75; PT 20.6 Sec (11.4-14.6)
[2023-12-06 07:00] LABS: Vancomycin Trough 10.3 ug/ml (5-20)
[2023-12-06 07:14] LABS: Blood Urea Nitrogen 18 mg/dl (9-20); Calcium 8.2 mg/dl (8.4-10.2); Carbon Dioxide 25 mmol/L (22-30); Chloride 106 mmol/L (98-107); Estimated Creatinine Clearance 105 ml/min; Glucose 150 mg/dl (70-99); Sodium 135 mmol/L (135-145); eGFR > 60.00
[2023-12-06 07:17] LABS: Glucose - Point of Care 117 mg/dl (70-99)
--- NOTE | 2023-12-06 07:23 | W.PN.ORTHO ---
Today's Communication / Plan
-
58-year-old male status post right first ray amputation Dr. Logan postop day 1
-Heel transfers only otherwise nonweightbearing per Dr. Logan; patient is significant distress regarding this.
-PT/OT/DC planning
-May discharge from podiatric surgery standpoint.
-Follow-up in the outpatient office in 2 weeks for wound check
-Podiatric surgery will continue to follow if patient is still admitted
Assessment
.
Distal Motor Intact: Yes
Dressing:
Clean, dry and intact.
Plan
.
Surgery / Date: 05 Dec 2023 R 1st ray amputation with Dr. Logan
Activity:
Out of bed.
PT/OT
Subjective
.
.:
Patient resting comfortably.
Vital Signs and Labs
.
Vital Signs and Labs:
Lab Results
12/06/23 06:20
12/06/23 06:20
Temp Pulse Resp BP Pulse Ox
98.3 F 73 14 107/64 99
12/06/23 03:45 12/06/23 03:45 12/06/23 03:45 12/06/23 03:45 12/06/23 03:45
PT 20.6 Sec (11.4-14.6) H 12/06/23 06:20
INR 1.75 12/06/23 06:20
[2023-12-06 07:35] VITALS: BP 131/81
[2023-12-06] MEDS: GLUCOPHAGE 500 MG PO ×2 (08:00→17:16)
[2023-12-06] MEDS: LIPITOR 10 MG PO (08:00)
--- NOTE | 2023-12-06 08:38 | PHA.VAN.FU ---
Vancomycin Assessment / Plan
- Assessment
Renal Function: Stable
WBC's are: WNL
In the past 24 hrs, patient has been: Afebrile
Concomitant Antimicrobials: cefepime, metronidazole
- Assessment - Therapeutic Drug Monitoring
Extrapolated Cmax (mcg/mL): 22.9
Peak level was drawn: Appropriately (drawn ~1.8H after end of previous infusion)
Extrapolated Cmin (mcg/mL): 10.3
Trough Drawn: Appropriately
Levels were drawn: At steady state (drawn after 4th maintenance dose)
Calculated AUC (mcg*h/mL): 381
Calculated ke: 0.0723
Calculated half life (H): 9.6
Calculated Vd (L): 72.7 (~0.9 L/kg)
Calculated Vanc CL (ml/min): 87.5
- Dosing Plan
Adjust Regimen to: Vanc 1250mg Q12H starting at 1800
New Regimen Predicts: AUC (502), Peak (29.7), Trough (13.9)
- Monitoring Plan
No level(s) ordered at this time: consider repeat levels in next few days
- Follow Up
Pharmacy will continue to follow.
Vancomycin Follow UP
- -
Patient Age: 58
Patient Sex: Male
Vancomycin Day #: 4
Indication: Skin And Soft Tissue
Requesting Provider: Rachael Gray
Pertinent Antimicrobial Allergies:
penicillin - unknown
Height / Weight:
Height 5 ft 6 in
Actual Weight 79.061 kg
Pertinent Past Medical History: DM 2
- Vital Signs / Lab Results
Temp Pulse Resp BP Pulse Ox
97.7 F 71 20 131/81 100
12/06/23 07:35 12/06/23 07:35 12/06/23 07:35 12/06/23 07:35 12/06/23 07:35
Lab Results - Hematology
0312/04/23 12/05/23
11:13 06:20 06:33
WBC 6.9 6.5 5.7
12/06/23
06:20
WBC 7.1
Lab Results - Chemistry
12/03/23 12/04/23 12/05/23
11:13 06:20 06:33
BUN 18 18 16
Creatinine 0.8 0.8 0.7
Estimated Creat Clear 92 92 105
Albumin 3.5
12/06/23
06:20
BUN 18
Creatinine 0.7
Estimated Creat Clear 105
Albumin
12/03/23 12/03/23
11:13 15:00
Lactic Acid 0.8 Cancelled
Microbiology Results
12/05/23 07:51 Gram Stain - Preliminary
Toe
12/03/23 11:13 Blood Culture - Preliminary
Blood/Venous No Growth in 48 hours- Final report to follow
12/03/23 11:13 Blood Culture - Preliminary
Blood/Venous No Growth in 48 hours- Final report to follow
12/03/23 17:57 MRSA Screen - Final
Nose No Methicillin Resistant Staphylococcus aureus isolated.
12/03/23 13:05 Urine Culture - Final
Urine NO GROWTH
Therapeutic Drug Monitoring
Vancomycin Peak 20.1 ug/ml (18-26) 12/05/23 21:05
Vancomycin Trough 10.3 ug/ml (5-20) 12/06/23 06:20
--- NOTE | 2023-12-06 09:19 | W.PN.HOSP.TC ---
Today's Communication/Plan
-
Metformin BID
Oral antibiotics for 2 weeks
Follow-up with podiatry
Follow-up with primary care
Assessment / Plan
Assessment / Plan
IMPRESSION
Right hallux osteomyelitis
DM type 2 with neuropathy
History of right lower extremity DVT
PLAN
Right hallux osteomyelitis with cellulitis/ diabetic foot infection
-ID and ortho following
- Amputation of right great toe 12/04
- Blood cultures no growth
Wound culture prelim Gram Positive Cocci , Gram Negative Rods
- Wound culture pending
- Might not need abx after surgery if the source of infection is removed
Switching to PO abx- waiting for ID
-Follow-up outpatient in 2 weeks with podiatry
X ray 12/05- FINDINGS/IMPRESSION: The patient is status post amputation of the distal third of the right first metatarsal and phalanges, with expected postoperative appearance.
DM type 2 with neuropathy
- Reconsider diabetic medication regimen
- metformin 500 mg BID PO likely d/c today
- f/u outpatient with primary care
History of right lower extremity DVT
-starting pradaxa 12/05
DVT ppx - hold warfarin prior to surgery tomorrow
Imaging :
12/03/2023 x-ray right foot: Focal soft tissue swelling involving the great toe.� Soft tissue deformity of the plantar soft tissues suggesting ulceration.� Bony definition on the lateral radiograph is poor, but no gross evidence for bony destruction.
12/03/2023 MRI right lower extremity: Acute osteomyelitis involving the entire first proximal phalanx and first distal phalanx.� There is a plantar medial first toe wound with a tract that extends directly to the first interphalangeal joint.� There
is a large amount of cellulitis around the first toe and a possible small focus of osteomyelitis in the head of the first metatarsal although this is noted to be less specific and could be degenerative in nature.
Anticipated Discharge: Today
Subjective/Interval History
-
Date of Service: December 06, 2023
Objective Data
-
Labs:
Laboratory Results
12/06/23
06:20
WBC 7.1
Hgb 10.7 L
Hct 32.6 L
Plt Count 179
PT 20.6 H
INR 1.75
Sodium 135
Potassium 4.0
Chloride 106
Carbon Dioxide 25
BUN 18
Creatinine 0.7
Glucose 150 H
Calcium 8.2 L
Vital Signs:
Vital Signs
Temp Pulse Resp BP Pulse Ox
97.7 F 71 20 131/81 100
12/06/23 07:35 12/06/23 07:35 12/06/23 07:35 12/06/23 07:35 12/06/23 07:35
I&O
12/05/23 12/06/23 12/07/23
06:59 06:59 06:59
Intake Total 1160 / 1160
Balance 1160 / 1160
Review of Systems
-
History Source: Patient
All other systems: Reviewed and negative
Physical Exam
-
General: Well Developed
HEENT: Normocephalic and Atraumatic
Respiratory: Clear to Auscultation
Cardiac: Regular Rhythm and S1/S2
Musculoskeletal: No Edema
Neuro: AO x 3
Psych: Other (frustrated )
Data Reviewed
-
Labs: Labs Reviewed by me and Discussed with Physician
--- NOTE | 2023-12-06 10:40 | CM ---
Postop right Hallax amputation .
As per ortho heel transfer only PT order requested from MD.
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
Will offer VN at dc.
PLAN Will offer VN at dc
[2023-12-06 12:13] LABS: Glucose - Point of Care 125 mg/dl (70-99)
[2023-12-06] MEDS: PRADAXA 150 MG PO ×2 (12:16→20:34)
--- NOTE | 2023-12-06 13:33 | W.PN.ID1 ---
Date of Service
Date of Service: December 06, 2023
Today's Communication
Continue antibiotics per
Assessment / Plan
Right hallux osteomyelitis
- s/p hallux and partial 1st met resection
Right foot cellulitis
DM with neuropathy
Recommendations:
Continue with empiric antibiotics for the present.
Currently awaiting culture data to guide further antimicrobial selection/de-escalation.
Also awaiting pathology, although plain films suggest wide excision and likely surgical cure.
Follow Vanco levels.
Monitor white count and temperature curve.
Chief Complaint
-: Other (right hallux osteo)
Subjective / Review of Systems
Review of Systems: No Fever and No Chills
Vital Signs / Physical Exam
Vital Signs
Vital Signs
Temp Pulse Resp BP Pulse Ox
97.7 F 71 20 131/81 100
12/06/23 07:35 12/06/23 07:35 12/06/23 07:35 12/06/23 07:35 12/06/23 07:35
Physical Exam
Constitutional: No Acute Distress, Comfortable and Non-toxic
Eyes: No Conjunctival Hemorrhage and Sclera Anicteric
Pulmonary: Non Labored
Extremities: Edema; Negative Erythema
Wound: Other (right foor dressed in KENNETH. No erythema up leg.)
Neurological: Awake and Alert
Psychological: Calm
Objective Data
Lab Data
Lab Results
12/06/23 06:20
12/06/23 06:20
PT 20.6 Sec (11.4-14.6) H 12/06/23 06:20
INR 1.75 12/06/23 06:20
Estimated Creat Clear 105 ml/min 12/06/23 06:20
Lactic Acid Cancelled 12/03/23 15:00
Total Bilirubin 1.0 mg/dl (0.2-1.3) 12/03/23 11:13
AST 33 U/L (17-59) 12/03/23 11:13
ALT 31 U/L (0-50) 12/03/23 11:13
Alkaline Phosphatase 152 U/L (38-126) H 12/03/23 11:13
Most recent labs reviewed.
Micro Results:
12/03/23 11:13 Blood Culture - Preliminary
Blood/Venous No Growth in 72 hours- Final report to follow
12/03/23 11:13 Blood Culture - Preliminary
Blood/Venous No Growth in 72 hours- Final report to follow
12/05/23 07:51 Wound Culture - Preliminary
Toe Gram Stain - Preliminary
12/05/23 07:51 Anaerobic Culture - Preliminary
Toe Culture pending. Anaerobic cultures are examined after 3
days incubation. Additional information to follow.
12/03/23 17:57 MRSA Screen - Final
Nose No Methicillin Resistant Staphylococcus aureus isolated.
12/03/23 13:05 Urine Culture - Final
Urine NO GROWTH
Imaging:
12/03/2023 x-ray right foot: Focal soft tissue swelling involving the great toe. Soft tissue deformity of the plantar soft tissues suggesting ulceration. Bony definition on the lateral radiograph is poor, but no gross evidence for bony destruction.
12/03/2023 MRI right lower extremity: Acute osteomyelitis involving the entire first proximal phalanx and first distal phalanx. There is a plantar medial first toe wound with a tract that extends directly to the first interphalangeal joint. There
is a large amount of cellulitis around the first toe and a possible small focus of osteomyelitis in the head of the first metatarsal although this is noted to be less specific and could be degenerative in nature.
Care Review
Plan reviewed with: Physician (Hospitalist)
[2023-12-06 15:26] VITALS: BP 101/64
[2023-12-06 16:43] LABS: Glucose - Point of Care 104 mg/dl (70-99)
--- NOTE | 2023-12-06 16:51 | CM ---
Postop right Hallax amputation .
As per ortho heel transfer only PT eval done.
PT rep reviewed MD order for heel transfer only.
Continue IV antibiotics.
Offered VN pt said he will not be homebound.See PT note. Will offered again
PLAN Home offer VN again at dc
[2023-12-06] MEDS: VANCOCIN 275 MG IV (17:44)
[2023-12-06] MEDS: TYLENOL 1000 MG PO (20:34)
[2023-12-06] MEDS: FLUSH (NSS) 1 FLUSH IV (20:36)
[2023-12-06 21:28] LABS: Glucose - Point of Care 96 mg/dl (70-99)
[2023-12-06] MEDS: TUMS EX (EXTRA STRENGTH) CHEWABLE 1 TABLET PO (22:08)
[2023-12-06 23:41] VITALS: BP 101/52
[2023-12-07] MEDS: STERILE WATER FOR INJECTION 10 ML IV ×3 (04:29→21:25)
[2023-12-07] MEDS: FLAGYL 500 MG 100 IV ×3 (04:29→21:25)
[2023-12-07] MEDS: MAXIPIME 2000 MG IV ×3 (04:29→21:25)
[2023-12-07] MEDS: VANCOCIN 275 MG IV ×2 (05:49→21:24)
[2023-12-07 06:29] LABS: Hematocrit 31.1 % (39.0-52.0); Hemoglobin 10.1 g/dL (13.0-18.0); Mean Corp Hgb Conc. 32.5 g/dL (33.0-37.0); Mean Corpuscular Hgb 26.9 pg (27.0-31.0); Mean Corpuscular Volume 82.7 fL (80.0-94.0); Mean Platelet Volume 11.1 fL (7.4-10.4); Platelet Count 176 10^3/uL (130-400); Red Blood Cell Count 3.76 10^6/uL (4.70-6.10); Red Cell Dist. Width 13.4 % (11.5-14.5); White Blood Cell Count 6.2 10^3/uL (4.8-10.8)
[2023-12-07 06:38] LABS: INR 2.21; PT 24.4 Sec (11.4-14.6)
[2023-12-07 06:53] LABS: Blood Urea Nitrogen 20 mg/dl (9-20); Calcium 8.5 mg/dl (8.4-10.2); Carbon Dioxide 26 mmol/L (22-30); Chloride 105 mmol/L (98-107); Estimated Creatinine Clearance 105 ml/min; Glucose 96 mg/dl (70-99); Potassium 4.5 mmol/L (3.5-5.1); Sodium 137 mmol/L (135-145); eGFR > 60.00
[2023-12-07 07:05] VITALS: BP 107/65
[2023-12-07 07:07] LABS: Glucose - Point of Care 90 mg/dl (70-99)
--- NOTE | 2023-12-07 07:48 | W.PN.ORTHO ---
Today's Communication / Plan
-
PT/OT
ABX per ID (cultures/pathology pending)
Heel weightbearing for transfer only
Ice and elevate to control swelling/pain
Follow up podiatry 2 weeks
Assessment
.
Distal Motor Intact: Yes
Dressing:
Clean, dry and intact.
Plan
.
Surgery / Date: 05 Dec 2023 R 1st ray amputation with Dr. Logan
DVT Prophylaxis: Coumadin
Activity:
Out of bed.
PT/OT
Discharge Plan: Home
Subjective
.
.:
Patient resting comfortably.
Vital Signs and Labs
.
Vital Signs and Labs:
Lab Results
12/07/23 05:22
12/07/23 05:22
Temp Pulse Resp BP Pulse Ox
98.1 F 78 16 101/52 99
12/06/23 23:41 12/06/23 23:41 12/06/23 23:41 12/06/23 23:41 12/06/23 23:41
PT 24.4 Sec (11.4-14.6) H 12/07/23 05:22
INR 2.21 12/07/23 05:22
--- NOTE | 2023-12-07 08:36 | PHA.VAN.FU ---
Vancomycin Assessment / Plan
- Assessment
Renal Function: Stable
WBC's are: WNL
In the past 24 hrs, patient has been: Afebrile
Concomitant Antimicrobials: CEFEPIME, METRONIDAZOLE
- Dosing Plan
Continue: 1250MG Q12H
- Monitoring Plan
No level(s) ordered at this time: CONSIDER NEXT FEW DAYS
- Follow Up
Pharmacy will continue to follow.
Vancomycin Follow UP
- -
Patient Age: 58
Patient Sex: Male
Vancomycin Day #: 5
Indication: Skin And Soft Tissue
Requesting Provider: Rachael Valencia / Marina
Pertinent Antimicrobial Allergies:
penicillin - unknown
Height / Weight:
Height 5 ft 6 in
Actual Weight 79.061 kg
Pertinent Past Medical History: DM 2
- Vital Signs / Lab Results
Temp Pulse Resp BP Pulse Ox
98.2 F 80 16 107/65 99
12/07/23 07:05 12/07/23 07:05 12/07/23 07:05 12/07/23 07:05 12/07/23 07:05
Lab Results - Hematology
12/05/23 12/06/23 12/07/23
06:33 06:20 05:22
WBC 5.7 7.1 6.2
Lab Results - Chemistry
12/05/23 12/06/23 12/07/23
06:33 06:20 05:22
BUN 16 18 20
Creatinine 0.7 0.7 0.7
Estimated Creat Clear 105 105 105
Microbiology Results
12/03/23 11:13 Blood Culture - Preliminary
Blood/Venous No Growth in 72 hours- Final report to follow
12/03/23 11:13 Blood Culture - Preliminary
Blood/Venous No Growth in 72 hours- Final report to follow
12/05/23 07:51 Wound Culture - Preliminary
Toe Gram Stain - Preliminary
12/05/23 07:51 Anaerobic Culture - Preliminary
Toe Culture pending. Anaerobic cultures are examined after 3
days incubation. Additional information to follow.
12/03/23 17:57 MRSA Screen - Final
Nose No Methicillin Resistant Staphylococcus aureus isolated.
Therapeutic Drug Monitoring
Vancomycin Peak 20.1 ug/ml (18-26) 12/05/23 21:05
Vancomycin Trough 10.3 ug/ml (5-20) 12/06/23 06:20
--- NOTE | 2023-12-07 08:50 | W.PN.HOSP.TC ---
Today's Communication/Plan
-
Still awaiting final culture results and margins
Will need to clarify wound care either from podiatry or orthopedics prior to discharge
Continue present course of antibiotics as per ID until further clarification above and transition to oral plan
Assessment / Plan
Assessment / Plan
IMPRESSION
Right hallux osteomyelitis
DM type 2 with neuropathy
History of right lower extremity DVT
PLAN
Right hallux osteomyelitis with cellulitis/ diabetic foot infection
-ID and ortho following
- Amputation of right great toe 12/04
- Blood cultures no growth
Wound culture prelim Gram Positive Cocci , Gram Negative Rods
- Wound culture pending
- Might not need abx after surgery if the source of infection is removed
Switching to PO abx- waiting for ID
-Orthopedic inputHeel weightbearing for transfers only ice and elevation to control swelling and pain
-Follow-up outpatient in 2 weeks with podiatry
X ray 12/05- FINDINGS/IMPRESSION: The patient is status post amputation of the distal third of the right first metatarsal and phalanges, with expected postoperative appearance.
DM type 2 with neuropathy
- Reconsider diabetic medication regimen
- metformin 500 mg BID PO likely d/c today
- f/u outpatient with primary care
History of right lower extremity DVT
-starting pradaxa 12/05
DVT ppx - hold warfarin prior to surgery tomorrow
Imaging :
12/03/2023 x-ray right foot: Focal soft tissue swelling involving the great toe.� Soft tissue deformity of the plantar soft tissues suggesting ulceration.� Bony definition on the lateral radiograph is poor, but no gross evidence for bony destruction.
12/03/2023 MRI right lower extremity: Acute osteomyelitis involving the entire first proximal phalanx and first distal phalanx.� There is a plantar medial first toe wound with a tract that extends directly to the first interphalangeal joint.� There
is a large amount of cellulitis around the first toe and a possible small focus of osteomyelitis in the head of the first metatarsal although this is noted to be less specific and could be degenerative in nature.
Anticipated Discharge: Within 24 hours
Subjective/Interval History
-
Date of Service: December 07, 2023
Times a 6 out of 10 pain presently more comfortable./He is anxious over the fact that no one told him his wound care instructions once he gets out with repeat exam this morning with no such instructions but did state heel weightbearing for transfers
only and ice and elevation to control swelling and pain.
Objective Data
-
Labs:
Laboratory Results
12/07/23
05:22
WBC 6.2
Hgb 10.1 L
Hct 31.1 L
Plt Count 176
PT 24.4 H
INR 2.21
Sodium 137
Potassium 4.5
Chloride 105
Carbon Dioxide 26
BUN 20
Creatinine 0.7
Glucose 96
Calcium 8.5
Vital Signs:
Vital Signs
Temp Pulse Resp BP Pulse Ox
98.2 F 80 16 107/65 99
12/07/23 07:05 12/07/23 07:05 12/07/23 07:05 12/07/23 07:05 12/07/23 07:05
I&O
12/06/23 12/07/23 12/08/23
06:59 06:59 06:59
Intake Total 1160 / 1160 750 / 750
Balance 1160 / 1160 750 / 750
Review of Systems
-
All other systems: Not reviewed unless documented
Musculoskeletal: Reports Muscle Pain, Muscle Stiffness and Edema
Physical Exam
-
General: Well Developed
Respiratory: Clear to Auscultation
Cardiac: Regular Rhythm
GI: Soft, Nontender and Nondistended
Musculoskeletal: Edema, Right Lower Extrem (Heavy Marky wrap dressing)
Neuro: Awake
Data Reviewed
-
Total Time Spent with Patient (in minutes): 45
Medical Tests (Nuc Med, Echo etc): Report Reviewed by me
Labs: Labs Reviewed by me
[2023-12-07] MEDS: PRADAXA 150 MG PO ×2 (09:01→21:25)
[2023-12-07] MEDS: LIPITOR 10 MG PO (09:02)
[2023-12-07] MEDS: GLUCOPHAGE 500 MG PO ×2 (09:02→17:53)
--- NOTE | 2023-12-07 12:05 | W.PN.ID1 ---
Date of Service
Date of Service: December 07, 2023
Today's Communication
continue current antibiotics
final dispo likely tomorrow
Assessment / Plan
Right hallux osteomyelitis
- s/p hallux and partial 1st met resection
Right foot cellulitis
DM with neuropathy
Recommendations:
Continue with empiric antibiotics vanc, cefepime, metro for the present.
Currently awaiting further culture data to guide further antimicrobial selection/de-escalation.
Also awaiting pathology, although plain films suggest wide excision and likely surgical cure.
Follow Vanco levels.
Monitor white count and temperature curve.
Chief Complaint
-: Other (right hallux osteo)
Subjective / Review of Systems
afebrile
bp stable
without leukocytosis
cr stable
wound cx enterococus
Vital Signs / Physical Exam
Vital Signs
Vital Signs
Temp Pulse Resp BP Pulse Ox
98.2 F 80 16 107/65 96
12/07/23 07:05 12/07/23 07:05 12/07/23 07:05 12/07/23 07:05 12/07/23 09:00
Physical Exam
Constitutional: No Acute Distress and Chronically Ill
Cardiovascular: Regular Rate and S1/S2; Negative Murmur or Rub
Pulmonary: Clear and Symmetric; Negative Wheezes or Rales
Gastrointestinal: Soft, Non Tender, Non Distended and Normal Bowel Sounds
Skin: Warm and Dry; Negative Rash or Jaundice
Wound: Other (dressing clean, dry intact)
Objective Data
Lab Data
Lab Results
12/07/23 05:22
12/07/23 05:22
PT 24.4 Sec (11.4-14.6) H 12/07/23 05:22
INR 2.21 12/07/23 05:22
Estimated Creat Clear 105 ml/min 12/07/23 05:22
Lactic Acid Cancelled 12/03/23 15:00
Total Bilirubin 1.0 mg/dl (0.2-1.3) 12/03/23 11:13
AST 33 U/L (17-59) 12/03/23 11:13
ALT 31 U/L (0-50) 12/03/23 11:13
Alkaline Phosphatase 152 U/L (38-126) H 12/03/23 11:13
Most recent labs reviewed.
Micro Results:
12/03/23 11:13 Blood Culture - Preliminary
Blood/Venous No Growth in 4 days- Final report to follow
12/03/23 11:13 Blood Culture - Preliminary
Blood/Venous No Growth in 4 days- Final report to follow
12/05/23 07:51 Wound Culture - Preliminary
Toe Enterococcus species
Gram Stain - Preliminary
12/05/23 07:51 Anaerobic Culture - Preliminary
Toe Culture pending. Anaerobic cultures are examined after 3
days incubation. Additional information to follow.
12/03/23 17:57 MRSA Screen - Final
Nose No Methicillin Resistant Staphylococcus aureus isolated.
12/03/23 13:05 Urine Culture - Final
Urine NO GROWTH
Imaging:
12/03/2023 x-ray right foot: Focal soft tissue swelling involving the great toe. Soft tissue deformity of the plantar soft tissues suggesting ulceration. Bony definition on the lateral radiograph is poor, but no gross evidence for bony destruction.
12/03/2023 MRI right lower extremity: Acute osteomyelitis involving the entire first proximal phalanx and first distal phalanx. There is a plantar medial first toe wound with a tract that extends directly to the first interphalangeal joint. There
is a large amount of cellulitis around the first toe and a possible small focus of osteomyelitis in the head of the first metatarsal although this is noted to be less specific and could be degenerative in nature.
[2023-12-07 12:13] LABS: Glucose - Point of Care 88 mg/dl (70-99)
[2023-12-07] MEDS: FLAGYL 500 MG IV ×2 (12:25→12:34)
[2023-12-07] MEDS: MAXIPIME IV ×2 (12:25→12:34)
[2023-12-07] MEDS: STERILE WATER FOR INJECTION IV ×2 (12:25→12:34)
[2023-12-07] MEDS: FLUSH (NSS) 1 FLUSH IV (12:26)
--- NOTE | 2023-12-07 12:41 | PTCARENOTE ---
Patient refused IV antibiotics scheduled for 12:00 (Flagyl & Maxipime). Pt states these antibiotics are making him 'sick'. Pt reports nausea and poor appetite. Dr. Pagan notified via TT. Plan of care ongoing.
[2023-12-07 15:05] VITALS: BP 103/58
[2023-12-07 16:57] LABS: Glucose - Point of Care 103 mg/dl (70-99)
--- NOTE | 2023-12-07 18:40 | TRANSFER ---
Patient tx to [facility]. Pt refused IV vancomycin at this time. Pt states he has been nauseated all day long. When this nurse offered him IV Zofran X2 pt refused med. Plan of care ongoing.
[2023-12-07 21:15] LABS: Glucose - Point of Care 79 mg/dl (70-99)
[2023-12-07] MEDS: TYLENOL 1000 MG PO (23:22)
[2023-12-07 23:35] VITALS: BP 143/84
[2023-12-08] MEDS: FLAGYL 500 MG 100 IV ×2 (04:43→13:22)
[2023-12-08] MEDS: STERILE WATER FOR INJECTION 10 ML IV ×2 (04:43→13:22)
[2023-12-08] MEDS: MAXIPIME 2000 MG IV ×2 (04:43→13:22)
[2023-12-08 05:35] LABS: Hematocrit 34.2 % (39.0-52.0); Hemoglobin 11.1 g/dL (13.0-18.0); Mean Corp Hgb Conc. 32.5 g/dL (33.0-37.0); Mean Corpuscular Hgb 26.5 pg (27.0-31.0); Mean Corpuscular Volume 81.6 fL (80.0-94.0); Mean Platelet Volume 10.9 fL (7.4-10.4); Platelet Count 178 10^3/uL (130-400); Red Blood Cell Count 4.19 10^6/uL (4.70-6.10); Red Cell Dist. Width 13.2 % (11.5-14.5); White Blood Cell Count 5.8 10^3/uL (4.8-10.8)
[2023-12-08 05:58] LABS: Blood Urea Nitrogen 15 mg/dl (9-20); Calcium 8.2 mg/dl (8.4-10.2); Carbon Dioxide 24 mmol/L (22-30); Chloride 107 mmol/L (98-107); Estimated Creatinine Clearance 123 ml/min; Glucose 87 mg/dl (70-99); Sodium 135 mmol/L (135-145); eGFR > 60.00
[2023-12-08] MEDS: VANCOCIN 275 MG IV (05:58)
[2023-12-08 07:00] VITALS: BP 154/91
[2023-12-08] MEDS: ZOFRAN 4 MG IV (08:00)
[2023-12-08 08:06] LABS: Glucose - Point of Care 71 mg/dl (70-99)
--- NOTE | 2023-12-08 08:21 | PHA.VAN.FU ---
Vancomycin Assessment / Plan
- Assessment
Renal Function: Stable
WBC's are: WNL
In the past 24 hrs, patient has been: Afebrile
Concomitant Antimicrobials: CEFEPIME
- Dosing Plan
Continue: 1250MG Q12H
- Monitoring Plan
No level(s) ordered at this time: PT LIKELY TO BE DISCHARGED SOON
- Follow Up
Pharmacy will continue to follow.
Vancomycin Follow UP
- -
Patient Age: 58
Patient Sex: Male
Vancomycin Day #: 6
Indication: Skin And Soft Tissue
Requesting Provider: Rachael Valencia / Marina
Pertinent Antimicrobial Allergies:
penicillin - unknown
Height / Weight:
Height 5 ft 6 in
Actual Weight 79.061 kg
Pertinent Past Medical History: DM 2
- Vital Signs / Lab Results
Temp Pulse Resp BP Pulse Ox
98.1 F 74 18 143/84 100
12/07/23 23:35 12/07/23 23:35 12/07/23 23:35 12/07/23 23:35 12/07/23 23:35
Lab Results - Hematology
12/06/23 12/07/23 12/08/23
06:20 05:22 05:20
WBC 7.1 6.2 5.8
Lab Results - Chemistry
12/06/23 12/07/23 12/08/23
06:20 05:22 05:20
BUN 18 20 15
Creatinine 0.7 0.7 0.6 L
Estimated Creat Clear 105 105 123
Microbiology Results
12/03/23 11:13 Blood Culture - Preliminary
Blood/Venous No Growth in 4 days- Final report to follow
12/03/23 11:13 Blood Culture - Preliminary
Blood/Venous No Growth in 4 days- Final report to follow
12/05/23 07:51 Wound Culture - Preliminary
Toe Enterococcus species
Gram Stain - Preliminary
12/05/23 07:51 Anaerobic Culture - Preliminary
Toe Culture pending. Anaerobic cultures are examined after 3
days incubation. Additional information to follow.
Therapeutic Drug Monitoring
Vancomycin Peak 20.1 ug/ml (18-26) 12/05/23 21:05
Vancomycin Trough 10.3 ug/ml (5-20) 12/06/23 06:20
--- NOTE | 2023-12-08 08:51 | W.PN.ORTHO ---
Today's Communication / Plan
-
PT/OT
Heel weightbearing for transfers only
Ice with elevation to control swelling and pain
Leave dressings in place until postop visit
Antibiotics per infectious disease
Follow-up Dr. Logan 2 weeks postop for suture removal
Assessment
.
Distal Motor Intact: Yes
Dressing:
Dressing removed. Incision is clean, dry and intact. Minimal edema and ecchymosis noted. New bulky dressing applied.
Plan
.
Surgery / Date: 05 Dec 2023 R 1st ray amputation with Dr. Logan
Activity:
Out of bed.
PT/OT
Discharge Plan: Home
Subjective
.
.:
Patient resting comfortably.
Vital Signs and Labs
.
Vital Signs and Labs:
Lab Results
12/08/23 05:20
12/08/23 05:20
Temp Pulse Resp BP Pulse Ox
98.1 F 74 18 143/84 100
12/07/23 23:35 12/07/23 23:35 12/07/23 23:35 12/07/23 23:35 12/07/23 23:35
PT 24.4 Sec (11.4-14.6) H 12/07/23 05:22
INR 2.21 12/07/23 05:22
Cultures show Enterococcus species
[2023-12-08] MEDS: GLUCOPHAGE 500 MG PO ×2 (09:02→16:19)
[2023-12-08] MEDS: LIPITOR 10 MG PO (09:02)
[2023-12-08] MEDS: PRADAXA 150 MG PO (09:03)
--- NOTE | 2023-12-08 09:29 | W.PN.HOSP.TC ---
Today's Communication/Plan
-
No further GI symptoms
C. difficile toxin negative
Await ID input for antibiotic course if any
Need outpatient follow-up for wound care partial weightbearing with boot and follow-up with podiatry
Probably get case management involved for wound care set up
Assessment / Plan
Assessment / Plan
IMPRESSION
Right hallux osteomyelitis
DM type 2 with neuropathy
History of right lower extremity DVT
PLAN
Right hallux osteomyelitis with cellulitis/ diabetic foot infection
-ID and ortho following
- Amputation of right great toe 12/04
- Blood cultures no growth
Wound culture prelim Gram Positive Cocci , Gram Negative Rods>> Enterococcus
-Will await choice of ID for outpatient plan of antibiotic course
- Might not need abx after surgery if the source of infection is removed
Switching to PO abx- waiting for ID
-Orthopedic inputHeel weightbearing for transfers only ice and elevation to control swelling and pain
-Follow-up outpatient in 2 weeks with podiatry
X ray 12/05- FINDINGS/IMPRESSION: The patient is status post amputation of the distal third of the right first metatarsal and phalanges, with expected postoperative appearance.
DM type 2 with neuropathy
- Reconsider diabetic medication regimen
- metformin 500 mg BID PO likely d/c today
- f/u outpatient with primary care
History of right lower extremity DVT
-starting pradaxa 12/05
DVT ppx - hold warfarin prior to surgery tomorrow
Imaging :
12/03/2023 x-ray right foot: Focal soft tissue swelling involving the great toe.� Soft tissue deformity of the plantar soft tissues suggesting ulceration.� Bony definition on the lateral radiograph is poor, but no gross evidence for bony destruction.
12/03/2023 MRI right lower extremity: Acute osteomyelitis involving the entire first proximal phalanx and first distal phalanx.� There is a plantar medial first toe wound with a tract that extends directly to the first interphalangeal joint.� There
is a large amount of cellulitis around the first toe and a possible small focus of osteomyelitis in the head of the first metatarsal although this is noted to be less specific and could be degenerative in nature.
Anticipated Discharge: Today
Subjective/Interval History
-
Date of Service: December 08, 2023
Had episode of nausea and diarrhea yesterday better this morning and tolerated breakfast. No further diarrhea.
Objective Data
-
Labs:
Laboratory Results
12/08/23
05:20
WBC 5.8
Hgb 11.1 L
Hct 34.2 L
Plt Count 178
Sodium 135
Potassium 4.0
Chloride 107
Carbon Dioxide 24
BUN 15
Creatinine 0.6 L
Glucose 87
Calcium 8.2 L
Vital Signs:
Vital Signs
Temp Pulse Resp BP Pulse Ox
97.8 F 80 16 154/91 100
12/08/23 07:00 12/08/23 07:00 12/08/23 07:00 12/08/23 07:00 12/08/23 07:00
I&O
12/07/23 12/08/23 12/09/23
06:59 06:59 06:59
Intake Total 750 / 750 945 / 945 475 / 475
Balance 750 / 750 945 / 945 475 / 475
Review of Systems
-
History Source: Patient
Respiratory: Reports No Symptoms
Cardiac: Reports No Symptoms
Abdomen/GI: Reports Nausea, Vomiting and Diarrhea
Physical Exam
-
General: Well Developed
HEENT: Normocephalic
Respiratory: Clear to Auscultation
Cardiac: Regular Rhythm
GI: Nontender and Nondistended
Musculoskeletal: Edema, Right Lower Extrem
Neuro: Awake
Psych: Calm
Data Reviewed
-
Total Time Spent with Patient (in minutes): 45
Labs: Labs Reviewed by me (C. difficile l toxin negative)
[2023-12-08 12:38] LABS: Glucose - Point of Care 132 mg/dl (70-99)
--- NOTE | 2023-12-08 14:50 | W.DS.TRANS ---
DC Summary - [employer]
-
Discharge Instructions:
Discharge Diagnosis/Procedures Right hallux osteomyelitis/post hallux and
partial first metatarsal resection
Right foot cellulitis
Diabetic neuropathy
Diet Diabetic, Carb Controlled
Activity Do not bear weight R leg
Additional Activity May utilize postoperative shoe for heel
transfers but otherwise instructed as
nonweightbearing to allow wound healing
Keep dressing in place until seen by podiatry
Bathing Restrictions When showering bag over the foot to keep
dressing
Instructions:
Stand-Alone Forms:
Changes to Home Medications: Yes
Discharge Medications:
DC Medications w/original date entered in [employer]
atorvastatin 10 mg tablet (Lipitor) 10 mg PO DAILY High Cholesterol 07/14/23
acetaminophen 500 mg tablet (Tylenol Extra Strength) 1,000 mg PO BIDPRN PRN mild pain 12/03/23
cholecalciferol (vitamin D3) 25 mcg (1,000 unit) tablet 50 mcg PO DAILY 12/03/23
amoxicillin 875 mg-potassium clavulanate 125 mg tablet 1 tab PO BID Infection #4 tabs 12/08/23
dabigatran etexilate 150 mg capsule (Pradaxa) 150 mg PO BID Blood clot prevention/tx #60 caps 12/08/23
metformin 500 mg tablet 500 mg PO BID@0800,1700 Diabetes #60 tabs 12/08/23
Home Medication Changes
amoxicillin 875 mg-potassium clavulanate 125 mg tablet 1 tab PO BID Infection #4 tabs 12/08/23
dabigatran etexilate 150 mg capsule (Pradaxa) 150 mg PO BID Blood clot prevention/tx #60 caps 12/08/23
metformin 500 mg tablet 500 mg PO BID@0800,1700 Diabetes #60 tabs 12/08/23
Pending Results: No
Total time spent discharging patient (in min): 38
--- NOTE | 2023-12-08 14:52 | W.DCSUMMARY ---
Discharge Summary
Discharge Data
Date of Admission: 12/03/23
Date of Discharge: 12/08/23
-
Pending Results: No
Hospital Course
This is a 58-year-old male type II diabetic with a known history of lower extremity DVT hyperlipidemia presents to the ED on date of admission with a chronic wound to his left great toe with foot x-ray initially not showing convincing evidence of
osteomyelitis however he was admitted for the purpose wound care and empiric antibiotic coverage was started on vancomycin and cefepime and Flagyl in the emergency room. There was some reason for concern based on prior imaging now showing poor
definition of bony margin of the distal phalanx of the right great toe after admission consultation was placed with the podiatry service and the orthopedic service and infectious disease service. He subsequently on the same date of admission
underwent an MRI showing acute osteomyelitis involving the entire first proximal phalanx and first distal phalanx of the first toe with surrounding large amount of cellulitis after being seen and evaluated by the podiatry service patient underwent a
first ray partial amputation he was maintained on the initial antibiotic course by the infectious disease service total margin and culture results were obtained. With medical management included concern over the previously described episodes of
hypoglycemia by the patient on glipizide and was felt that the patient should seek an alternative management of his type 2 diabetes and was placed on metformin 500 mg twice a day and glipizide discontinued we also pursued an alternative to his
warfarin maintenance as the patient is apparently in a noncompliant with proper follow-up and was placed on eventually Pradaxa 150 mg twice a day as a cost option after consultation with the case management service. Culture results eventually grew
out Enterococcus but with margins being free ID recommendation is for the patient to complete a course of Augmentin 875 mg twice a day for another 2 days postdischarge I also called in a prescription for Pradaxa and metformin. Patient was offered
VNA services for wound care however stated to case management service that he would not be homebound unclear what that meant. Patient has been instructed to only do heel transfers with his walking boot that was supplied by podiatry he is to keep
his present dressing until seen by podiatry service in approximately [address] Logan.
Discharge Plan
-
Patient Disposition: Home (Routine Discharge)
Discharge Diagnosis/Procedures: Right hallux osteomyelitis/post hallux and partial first metatarsal resection
Right foot cellulitis
Diabetic neuropathy
Diet: Diabetic, Carb Controlled
Activity: Do not bear weight R leg
Additional Activity: May utilize postoperative shoe for heel transfers but otherwise instructed as nonweightbearing to allow wound healing
Keep dressing in place until seen by podiatry
Bathing Restrictions: When showering bag over the foot to keep dressing
Referrals:
Cyril Logan DPM [Active] - in two weeks (Please contact the office at [phone] to schedule first postoperative visit 2 weeks from date of surgery for wound evaluation and suture removal)
UNKNOWN - PT DOES,NOT KNOW [Family Provider] -
Additional Discharge Medication Instructions: Stop glipizide, stop warfarin,
Prescriptions:
New
metformin 500 mg Tablet
500 mg PO BID@0800,1700 Qty: 60 0RF
dabigatran etexilate [Pradaxa] 150 mg Capsule
150 mg PO BID Qty: 60 0RF
amoxicillin-pot clavulanate 875-125 mg tablet
1 tab PO BID Qty: 4 0RF
Continued
atorvastatin [Lipitor] 10 mg Tablet
10 mg PO DAILY
acetaminophen [Tylenol Extra Strength] 500 mg Tablet
1,000 mg PO BIDPRN PRN (Reason: mild pain)
cholecalciferol (vitamin D3) 25 mcg (1,000 unit) Tablet
50 mcg PO DAILY
Discontinued
warfarin [Jantoven] 10 mg tablet
5 mg PO DAILY
glipizide 5 mg tablet
5 mg PO BID@0800,1700
cephalexin 500 mg Capsule
500 mg PO QID 7 Days Qty: 28 0RF
Patient Comments:
12/03/2023, pt. filled this med. on 12/02/2023 and is instructed to take one capsule QID for 5 days; per pt., he took first dose of this med. last night (12/02/2023).
Discharge Orders:
Discharge Patient (As Directed); Ordered 12/08/23
Ordered By: Jeff Pagan
[2023-12-08 15:00] VITALS: BP 109/83
--- NOTE | 2023-12-08 15:19 | W.DS.TRANS ---
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
-
Discharge Instructions:
Discharge Diagnosis/Procedures Right hallux osteomyelitis/post hallux and
partial first metatarsal resection
Right foot cellulitis
Diabetic neuropathy
Diet Diabetic, Carb Controlled
Activity Do not bear weight R leg
Additional Activity May utilize postoperative shoe for heel
transfers but otherwise instructed as
nonweightbearing to allow wound healing
Keep dressing in place until seen by podiatry
Bathing Restrictions When showering bag over the foot to keep
dressing
Instructions:
Stand-Alone Forms:
Changes to Home Medications: Yes
Discharge Medications:
DC Medications w/original date entered in [employer]
atorvastatin 10 mg tablet (Lipitor) 10 mg PO DAILY High Cholesterol 07/14/23
acetaminophen 500 mg tablet (Tylenol Extra Strength) 1,000 mg PO BIDPRN PRN mild pain 12/03/23
cholecalciferol (vitamin D3) 25 mcg (1,000 unit) tablet 50 mcg PO DAILY 12/03/23
amoxicillin 875 mg-potassium clavulanate 125 mg tablet 1 tab PO BID Infection #4 tabs 12/08/23
dabigatran etexilate 150 mg capsule (Pradaxa) 150 mg PO BID Blood clot prevention/tx #60 caps 12/08/23
metformin 500 mg tablet 500 mg PO BID@0800,1700 Diabetes #60 tabs 12/08/23
Home Medication Changes
amoxicillin 875 mg-potassium clavulanate 125 mg tablet 1 tab PO BID Infection #4 tabs 12/08/23
dabigatran etexilate 150 mg capsule (Pradaxa) 150 mg PO BID Blood clot prevention/tx #60 caps 12/08/23
metformin 500 mg tablet 500 mg PO BID@0800,1700 Diabetes #60 tabs 12/08/23
Pending Results: No
Total time spent discharging patient (in min): 45
--- NOTE | 2023-12-08 15:31 | CM ---
Patient seen bedside, patient requesting VN services. Referral made to [facility]. CM confirmed with patient he will be home and not working, patient confirms he will be home and cannot work. Per patient, he has no friends or family, no one to help him.
Patient reports he grocery shops himself, goes to the pharmacy himself. Patient reports he drove himself to the hospital and will drive himself home. Per patient, he is allowed to drive using the side of his foot. CM will continue to follow for
discharge planning needs.
Plan; home with [facility] pending acceptance.
--- NOTE | 2023-12-08 16:29 | PTCARENOTE ---
Went over discharge instructions in detail with pt. Was very impatient to leave hospital in order to get to pharmacy before it closed, did not sign discharge instruction signature page.
--- NOTE | 2023-12-08 16:35 | W.PN.ID1 ---
Date of Service
Date of Service: December 08, 2023
Today's Communication
Start doxycycline x 2 further days - called in new script to his pharmacy [facility]
Assessment / Plan
Right hallux osteomyelitis
- s/p hallux and partial 1st met resection
Right foot cellulitis
DM with neuropathy
Reported penicillin allergy
Recommendations:
Start doxycycline x 2 further days - called in new script to his pharmacy [facility]
Monitor white count and temperature curve.
Chief Complaint
-: Other (right hallux osteo)
Subjective / Review of Systems
afebrile
bp stable
without leukocytosis, cr stable
cultures resulted
tolerating current therapies
has not had penicillin challenge here
Vital Signs / Physical Exam
Vital Signs
Vital Signs
Temp Pulse Resp BP Pulse Ox
97.8 F 80 16 154/91 100
12/08/23 07:00 12/08/23 07:00 12/08/23 07:00 12/08/23 07:00 12/08/23 07:00
Physical Exam
Constitutional: No Acute Distress
Cardiovascular: Regular Rate and S1/S2; Negative Murmur or Rub
Pulmonary: Clear and Symmetric; Negative Wheezes or Rales
Gastrointestinal: Soft, Non Tender, Non Distended and Normal Bowel Sounds
Skin: Warm and Dry; Negative Rash or Jaundice
Objective Data
Lab Data
Lab Results
12/08/23 05:20
12/08/23 05:20
PT 24.4 Sec (11.4-14.6) H 12/07/23 05:22
INR 2.21 12/07/23 05:22
Estimated Creat Clear 123 ml/min 12/08/23 05:20
Lactic Acid Cancelled 12/03/23 15:00
Total Bilirubin 1.0 mg/dl (0.2-1.3) 12/03/23 11:13
AST 33 U/L (17-59) 12/03/23 11:13
ALT 31 U/L (0-50) 12/03/23 11:13
Alkaline Phosphatase 152 U/L (38-126) H 12/03/23 11:13
Most recent labs reviewed.
Micro Results:
12/03/23 11:13 Blood Culture - Final
Blood/Venous No Growth - Final Report
12/03/23 11:13 Blood Culture - Final
Blood/Venous No Growth - Final Report
12/05/23 07:51 Wound Culture - Preliminary
Toe Enterococcus faecalis
Gram Stain - Preliminary
12/05/23 07:51 Anaerobic Culture - Preliminary
Toe Culture pending. Anaerobic cultures are examined after 3
days incubation. Additional information to follow.
12/07/23 16:09 C. difficile GDH Antigen & Toxins - Final
Feces/Stool Negative for toxigenic C.difficile
12/03/23 17:57 MRSA Screen - Final
Nose No Methicillin Resistant Staphylococcus aureus isolated.
12/03/23 13:05 Urine Culture - Final
Urine NO GROWTH
Imaging:
12/03/2023 x-ray right foot: Focal soft tissue swelling involving the great toe. Soft tissue deformity of the plantar soft tissues suggesting ulceration. Bony definition on the lateral radiograph is poor, but no gross evidence for bony destruction.
12/03/2023 MRI right lower extremity: Acute osteomyelitis involving the entire first proximal phalanx and first distal phalanx. There is a plantar medial first toe wound with a tract that extends directly to the first interphalangeal joint. There
is a large amount of cellulitis around the first toe and a possible small focus of osteomyelitis in the head of the first metatarsal although this is noted to be less specific and could be degenerative in nature.
== END 2023-12-08 16:30 | disposition home health service (06) | DRG 617 ==
LOC: 4 WEST ACU 14:02
PROVIDERS: Nurse Practitioner; Registered Nurse; ADMITTING PHYSICIAN Student in an Organized Health Care Education/Training Program; ATTENDING PHYSICIAN Internal Medicine; CONSULT PHYSICIAN Student in an Organized Health Care Education/Training Program; EMERGENCY PHYSICIAN Emergency Medicine; OTHER PHYSICIAN Internal Medicine Infectious Disease
PROC: 0Y6M0Z9 Detachment at Right Foot, Partial 1st Ray, Open Approach (ICD-10-PCS; 2023-12-05)
DX: E11.69 Type 2 diabetes mellitus with other specified complication (principal); D68.9 Coagulation defect, unspecified; M86.171 Other acute osteomyelitis, right ankle and foot; L03.115 Cellulitis of right lower limb; L97.516 Non-pressure chronic ulcer of other part of right foot with bone involvement without evidence of necrosis; E11.621 Type 2 diabetes mellitus with foot ulcer; E11.42 Type 2 diabetes mellitus with diabetic polyneuropathy; E11.65 Type 2 diabetes mellitus with hyperglycemia; F17.290 Nicotine dependence, other tobacco product, uncomplicated; E78.00 Pure hypercholesterolemia, unspecified; B95.2 Enterococcus as the cause of diseases classified elsewhere; D63.8 Anemia in other chronic diseases classified elsewhere; L05.91 Pilonidal cyst without abscess; Z79.84 Long term (current) use of oral hypoglycemic drugs; Z79.01 Long term (current) use of anticoagulants; Z91.199 Patient's noncompliance with other medical treatment and regimen due to unspecified reason; Z86.718 Personal history of other venous thrombosis and embolism; Z88.0 Allergy status to penicillin; Z79.2 Long term (current) use of antibiotics
CPT/HCPCS: 88305; 88311; 73620; 73630; 73723; 80048; 80053; 80202; 81003; 81015; 82962; 83605; 85025; 85027; 85610; 87040; 87070; 87075; 87077; 87086; 87186; 87205; 87324; 87449; 93922; 93925; 96365; 96366; 96367; 96375; 97163; 99285; 99406; A9575

== ENCOUNTER 2025-02-05 15:12 | Emergency (ER) | payer OTHER, SELFPAY ==
[2025-02-05 15:15] VITALS: BP 155/94
--- NOTE | 2025-02-05 15:33 | ED.GENMED ---
History of Present Illness
General
Chief Complaint: Musculo-Skeletal Complaint
Source: patient
Exam Limitations: none
Time Seen by Provider: 02/05/25 15:21
History of Present Illness
History of Present Illness:
59yoM with a history of type 2 diabetes and history of DVT on Pradaxa presenting for evaluation of a left foot wound. Patient started to experience pain in his left foot about 4-5 days ago. He made an appointment with the [facility]
and was seen today in the office. There was an ulcer seen on exam and he was sent to the ED for evaluation. Patient denies any fevers or chills. He does not regularly check his sugars at home because he does not want to live like that. He
screened positive for the suicidal questions in triage. He reports being very frustrated about being in the hospital again stating he has a lot of debt due to his prior hospitalizations. He states 'what's the point of living if I have to live like
this?' He denies any plans to hurt himself.
Past History
Past History
ED Past Medical History: None
ED Past Surgical History: None and Tonsilectomy
Social History
Tobacco: Other (tobacco)
Alcohol: Occasional
Employment: Employed
Phy Exam
General Physical Exam
General Presentation: well appearing and no apparent distress
General Skin: warm and dry
General Habitus: normal
General Mental: alert
ENT Exam
ENT Exam: normocephalic
Pulmonary Exam
Pulmonary Exam: no respiratory distress
Neurological Exam
Neurological Exam: alert
Hermann Coma Scale
Eye Opening: Spontaneous
Verbal Response: Oriented
Motor Response: Obeys Commands
GCS Total Score: 15
Musculoskeletal Exam
Musculoskeletal Exam: other (Small ulcer noted to the L heel with central eschar. No drainage, warmth, or surrounding erythema. No crepitus or fluctuance. 2+ DP pulse.)
Skin Exam
Skin Exam: warm/dry
Psychiatric Exam
Psychiatric Exam: agitated
Course
Orders/Labs/Results
Orders:
Orders
02/05/25 15:32
CR Foot - Left Min 3 Views Urgent
Comment:
Reason For Exam: heel wound
02/05/25 15:52
CRP [C-Reactive Protein] Urgent
Complete Blood Count/With Diff Urgent
Comprehensive Metabolic Panel Urgent
ESR [Erythrocyte Sed Rate] Urgent
Abnormal Lab Results
02/05/25
15:52
RBC 4.08 L 10^6/uL
(4.70-6.10)
Hgb 11.5 L g/dL
(13.0-18.0)
Hct 35.1 L %
(39.0-52.0)
MCHC 32.8 L g/dL
(33.0-37.0)
MPV 10.9 H fL
(7.4-10.4)
Absolute Lymphs (auto) 1.0 L 10^3/uL
(1.2-3.4)
Absolute Monos (auto) 0.8 H 10^3/uL
(0.1-0.6)
Lymphocytes % 14.5 L %
(20.5-51.1)
Monocytes % 11.6 H %
(1.7-9.3)
ESR 73 H mm/hour
(0-20)
Chloride 112 H mmol/L
(98-107)
C-Reactive Protein 69.30 H mg/L
(0.0-10.00)
Total Protein 6.1 L g/dl
(6.3-8.2)
02/05/25 15:52
02/05/25 15:52
Vital Signs
Initial and Last Documented VS:
Initial Vital Signs
Temp Pulse Resp BP Pulse Ox
98.2 F 97 15 155/94 100
02/05/25 15:15 02/05/25 15:15 02/05/25 15:15 02/05/25 15:15 02/05/25 15:15
Last Documented Vital Signs
Temp Pulse Resp BP Pulse Ox
98.2 F 97 16 155/94 100
02/05/25 15:15 02/05/25 15:15 02/05/25 16:00 02/05/25 15:15 02/05/25 15:15
MDM/Problems Addressed
Differential Diagnosis Includes:
59yoM here with a L foot wound. Hx of DM. Sent in by [facility] for concern for osteomyelitis. No f/c. He is hypertensive with otherwise stable vitals. There is a small ulcer noted to the heel on exam. No clinical signs of cellulitis,
abscess, or NSTI. Differential diagnosis includes: diabetic foot ulcer, pressure wound, less likely OM
Initial ED plan: Check CBC, CMP, ESR/CRP, and L foot x-rays. Patient did report suicidal ideations in triage. Will consult crisis.
*Critical Care Note
Total Time (30-74mins, 75-104mins- exclusive of procedures): Not Applicable
Update Note
Update Note:
ESR/CRP elevated although white count normal. Glucose 76. No evidence of osteomyelitis on x-ray. Patient ultimately declined crisis consult. He denies SI and admits that he was just feeling overwhelmed that he was back in the hospital. No indication
for hospitalization at this time. Will start on a course of clindamycin. Foam adhesive dressing placed to heel. Stressed importance of outpatient f/u with podiatry and wound care. Strict ED return precautions discussed. Patient in agreement with
plan and was discharged in stable condition.
ED Attending Note
-
Portions of this chart may have been created with voice recognition software.� Occasional wrong word or��sound alike� substitutions may have occurred due to the inherent limitations of voice recognition software.
Discharge Plan
Departure
Patient Disposition: Home (Routine Discharge)
Date of Disposition: 02/05/25
Time of Disposition: 16:53
Patient with high blood pressure during this ER visit?: Yes
Discharge Problem:
Diabetic foot ulcer
Instructions: Diabetic foot ulcer
Prescriptions:
New
clindamycin HCl 150 mg capsule
450 mg PO TID 7 Days Qty: 63 0RF
No Action
atorvastatin [Lipitor] 10 mg Tablet
10 mg PO DAILY
acetaminophen [Tylenol Extra Strength] 500 mg Tablet
1,000 mg PO BIDPRN PRN (Reason: mild pain)
cholecalciferol (vitamin D3) 25 mcg (1,000 unit) Tablet
50 mcg PO DAILY
metformin 500 mg Tablet
500 mg PO BID@0800,1700 Qty: 60 0RF
dabigatran etexilate [Pradaxa] 150 mg Capsule
150 mg PO BID Qty: 60 0RF
amoxicillin-pot clavulanate 875-125 mg tablet
1 tab PO BID Qty: 4 0RF
Referrals:
NONE,* [Family Provider] -
Cyril Logan DPM [Active] -
[facility] [Active Community] -
Activity Restrictions/Additional Instructions:
Take antibiotics as prescribed. Keep wound clean and dry and change dressings daily.
Please call to schedule a follow-up with podiatry and wound care next week. Return to the ER with any worsening symptoms including fevers, spreading redness, or foul odor.
Interventions
Interventions:
*Risk Screen - Suicide Last Done: 02/05/25 15:15
*General Assessment Last Done: 02/05/25 15:15
*Neglect/Abuse Screening Last Done: 02/05/25 15:33
*ED- Fall Risk Assessment Last Done: 02/05/25 15:33
*ED COVID-19 Vaccine History Last Done: 02/05/25 15:33
*Nursing Disposition Last Done: 02/05/25 17:23
ED-Musculoskeletal Assessment Last Done: 02/05/25 15:35
Discharge Date and Time
Discharge Date/Time: 02/05/25 17:24
Print Language: S[place]
[2025-02-05 16:09] LABS: % Basophils 0.6 % (0-2); % Eosinophils 1.9 % (0-6); % Immature Granulocytes 0.3 % (0-0.5); % Lymphocytes 14.5 % (20.5-51.1); % Monocytes 11.6 % (1.7-9.3); % Neutrophils 71.1 % (42.2-75.2); Absolute Eosinophils 0.1 10^3/uL (0-0.7); Absolute Monocytes 0.8 10^3/uL (0.1-0.6); Absolute Neutrophils 4.9 10^3/uL (1.4-6.5); Hematocrit 35.1 % (39.0-52.0); Hemoglobin 11.5 g/dL (13.0-18.0); Mean Corp Hgb Conc. 32.8 g/dL (33.0-37.0); Mean Corpuscular Hgb 28.2 pg (27.0-31.0); Mean Platelet Volume 10.9 fL (7.4-10.4); Nucleated Red Blood Cells % 0 % (-); Platelet Count 138 10^3/uL (130-400); Red Blood Cell Count 4.08 10^6/uL (4.70-6.10); Red Cell Dist. Width 12.7 % (11.5-14.5); White Blood Cell Count 6.9 10^3/uL (4.8-10.8)
[2025-02-05 16:12] LABS: Erythrocyte Sed Rate 73 mm/hour (0-20)
[2025-02-05 16:27] LABS: ALT (SGPT) 18 U/L (0-50); AST (SGOT) 20 U/L (17-59); Albumin 3.7 g/dl (3.5-5.0); Alkaline Phosphatase 80 U/L (38-126); Blood Urea Nitrogen 16 mg/dl (9-20); Calcium 8.4 mg/dl (8.4-10.2); Carbon Dioxide 24 mmol/L (22-30); Chloride 112 mmol/L (98-107); Glucose 76 mg/dl (70-99); Sodium 142 mmol/L (135-145); Total Bilirubin 0.5 mg/dl (0.2-1.3); Total Protein 6.1 g/dl (6.3-8.2); eGFR > 60.00
== END 2025-02-05 17:24 | disposition home or self-care (01) ==
LOC: EMR 15:12
PROVIDERS: Physician Assistant; EMERGENCY PHYSICIAN Emergency Medicine
DX: E11.621 Type 2 diabetes mellitus with foot ulcer (principal); L97.429 Non-pressure chronic ulcer of left heel and midfoot with unspecified severity; Z86.718 Personal history of other venous thrombosis and embolism; Z79.01 Long term (current) use of anticoagulants
CPT/HCPCS: 99284; 73630; 80053; 85025; 85652; 86140

== ENCOUNTER → 2025-02-16 07:40 | Outpatient (REF) | payer OTHER, SELFPAY | LOC: WOUND 07:40 | PROVIDERS: ATTENDING PHYSICIAN Surgery | DX: L89.623 Pressure ulcer of left heel, stage 3 (principal); E11.42 Type 2 diabetes mellitus with diabetic polyneuropathy; Z79.01 Long term (current) use of anticoagulants; Z89.411 Acquired absence of right great toe; Z86.718 Personal history of other venous thrombosis and embolism | CPT/HCPCS: 11042; 99204 ==

== ENCOUNTER → 2025-02-23 13:38 | Outpatient (REF) | payer OTHER, SELFPAY | LOC: WOUND 13:38 | PROVIDERS: ATTENDING PHYSICIAN Surgery | DX: E11.621 Type 2 diabetes mellitus with foot ulcer (principal); L89.623 Pressure ulcer of left heel, stage 3; E11.42 Type 2 diabetes mellitus with diabetic polyneuropathy; Z79.01 Long term (current) use of anticoagulants; Z89.411 Acquired absence of right great toe; Z86.718 Personal history of other venous thrombosis and embolism | CPT/HCPCS: 99213 ==

== ENCOUNTER → 2025-03-16 13:42 | Outpatient (REF) | payer OTHER, SELFPAY | LOC: WOUND 13:42 | PROVIDERS: ATTENDING PHYSICIAN Surgery | DX: E11.621 Type 2 diabetes mellitus with foot ulcer (principal); L89.623 Pressure ulcer of left heel, stage 3; E11.42 Type 2 diabetes mellitus with diabetic polyneuropathy; Z79.01 Long term (current) use of anticoagulants; Z89.411 Acquired absence of right great toe; Z86.718 Personal history of other venous thrombosis and embolism | CPT/HCPCS: 99213 ==

== ENCOUNTER → 2025-04-06 13:46 | Outpatient (REF) | payer OTHER, SELFPAY | LOC: WOUND 13:46 | PROVIDERS: ATTENDING PHYSICIAN Surgery | DX: E11.621 Type 2 diabetes mellitus with foot ulcer (principal); L89.623 Pressure ulcer of left heel, stage 3; E11.42 Type 2 diabetes mellitus with diabetic polyneuropathy; Z79.01 Long term (current) use of anticoagulants; Z89.411 Acquired absence of right great toe; Z86.718 Personal history of other venous thrombosis and embolism | CPT/HCPCS: 99212 ==

== ENCOUNTER 2025-05-18 20:30 | Inpatient (IN) | payer OTHER, SELFPAY ==
[2025-05-18 15:14] LABS: Hematocrit 38.1 % (39.0-52.0); Hemoglobin 12.4 g/dL (13.0-18.0); Mean Corp Hgb Conc. 32.5 g/dL (33.0-37.0); Mean Corpuscular Volume 86.6 fL (80.0-94.0); Nucleated Red Blood Cells % 0 % (-); Platelet Count 158 10^3/uL (130-400); Red Cell Dist. Width 13.0 % (11.5-14.5)
[2025-05-18 15:43] LABS: ALT (SGPT) 19 U/L (0-50); AST (SGOT) 23 U/L (17-59); Albumin 4.1 g/dl (3.5-5.0); Alkaline Phosphatase 89 U/L (38-126); Blood Urea Nitrogen 17 mg/dl (9-20); Calcium 8.9 mg/dl (8.4-10.2); Carbon Dioxide 27 mmol/L (22-30); Chloride 109 mmol/L (98-107); Glucose 79 mg/dl (70-99); Potassium 4.2 mmol/L (3.5-5.1); Sodium 141 mmol/L (135-145); Total Protein 6.7 g/dl (6.3-8.2); eGFR > 60.00
[2025-05-18 18:22] VITALS: BMI 25.1
--- NOTE | 2025-05-18 18:22 | ED.SKININJ ---
HPI-Injury
General
Chief Complaint: Skin Problem
Source: patient
Exam Limitations: none
Time Seen by Provider: 05/18/25 16:27
History of Present Illness-Injury
Initial Injury comments:
60-year-old male presents with worsening blister to the plantar surface of his right foot. He is diabetic. He is on metformin. He was initially seen in urgent care several days ago and advised to provide local care with topical antibiotics. He
notes there is more redness. He has neuropathy and cannot feel any pain. He denies fevers or vomiting. 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
Past History
Past History
ED Past Medical History: None
ED Past Surgical History: None and Tonsilectomy
Social History
Tobacco: Other (tobacco)
Alcohol: Occasional
Employment: Employed
Phy Exam
Physical Exam
Physical Exam:
General: Well-appearing male no acute respiratory distress
HEENT: Normocephalic atraumatic
Heart: Regular rate and rhythm
Lungs: Clear no wheeze
Skin: Foot ulcer noted plantar surface right foot dark at the base mild surrounding erythema no drainage or foul odor
Vascular: 2+ DP pulse right foot
Neurologic: Sensation right
Course
Orders/Labs/Results
Orders:
Orders
05/18/25 15:00
Complete Blood Count/With Diff Urgent
Comprehensive Metabolic Panel Urgent
05/18/25 16:50
CR Foot - Right Min 3 Views Urgent
Comment:
Reason For Exam: foot ulcer
05/18/25 18:32
Wound Culture [Wound/Abscess/Other Culture] Urgent
SAKINA Source: Foot
Specimen Description: Right
Date Specimen was Collected: 05/18/25
Time Specimen was Collected: 19:06
05/18/25 18:50
Vancomycin [Vancocin] 2,000 mg 0.9% Sodium Chloride 500 ml [Nss] 500 ml IV NOW
Abnormal Lab Results
05/18/25
15:00
RBC 4.40 L 10^6/uL
(4.70-6.10)
Hgb 12.4 L g/dL
(13.0-18.0)
Hct 38.1 L %
(39.0-52.0)
MCHC 32.5 L g/dL
(33.0-37.0)
MPV 10.6 H fL
(7.4-10.4)
Absolute Monos (auto) 0.7 H 10^3/uL
(0.1-0.6)
Lymphocytes % 17.2 L %
(20.5-51.1)
Chloride 109 H mmol/L
(98-107)
05/18/25 15:00
05/18/25 15:00
Vital Signs
Initial and Last Documented VS:
Initial Vital Signs
Temp Pulse Resp Pulse Ox
98.8 F 99 16 98
05/18/25 14:51 05/18/25 14:51 05/18/25 14:51 05/18/25 14:51
Last Documented Vital Signs
Temp Pulse Resp BP Pulse Ox
98.8 F 82 20 133/84 98
05/18/25 14:51 05/18/25 18:26 05/18/25 18:26 05/18/25 18:26 05/18/25 18:26
MDM/Problems Addressed
Differential Diagnosis Includes:
Foot also in a diabetic patient. Concern for cellulitis versus underlying osteomyelitis. He has a history of right large toe amputation he is concerned about his foot in general. White blood cell count normal. X-ray shows no obvious signs of
osteomyelitis. Given his neuropathy, diabetic nature and history of prior amputation, We will opt for admission to hospital for IV antibiotic
*Pulse Oximetry
SaO2: 98
Oxygen Mode of Delivery: Room air
Patient hypoxic: no
*Critical Care Note
Total Time (30-74mins, 75-104mins- exclusive of procedures): Not Applicable
Update Note
Update Note:
X-ray negative for obvious bony infection. Patient with diabetic foot ulcer we will treat for cellulitis. Vancomycin ordered wound cultures performed. Will admit to hospital
ED Attending Note
-
Portions of this chart may have been created with voice recognition software.� Occasional wrong word or��sound alike� substitutions may have occurred due to the inherent limitations of voice recognition software.
Discharge Plan
Departure
Patient Disposition: Admit
Date of Disposition: 05/18/25
Time of Disposition: 19:19
Presentation/result/management discussed w/ accepting MD/DO: Hospitalist
Discharge Problem:
Diabetic infection of right foot
Prescriptions:
No Action
atorvastatin [Lipitor] 10 mg Tablet
10 mg PO DAILY
acetaminophen [Tylenol Extra Strength] 500 mg Tablet
1,000 mg PO BIDPRN PRN (Reason: mild pain)
cholecalciferol (vitamin D3) 25 mcg (1,000 unit) Tablet
50 mcg PO DAILY
metformin 500 mg Tablet
500 mg PO BID@0800,1700 Qty: 60 0RF
dabigatran etexilate [Pradaxa] 150 mg Capsule
150 mg PO BID Qty: 60 0RF
amoxicillin-pot clavulanate 875-125 mg tablet
1 tab PO BID Qty: 4 0RF
clindamycin HCl 150 mg capsule
450 mg PO TID 7 Days Qty: 63 0RF
Referrals:
UNKNOWN - PT DOES,NOT KNOW [Family Provider]
Interventions
Interventions:
*Risk Screen - Suicide Last Done: 05/18/25 14:51
*Neglect/Abuse Screening Last Done: 05/18/25 14:51
*ED COVID-19 Vaccine History Last Done: 05/18/25 18:19
ED-Skin Assessment Last Done: 05/18/25 17:28
Discharge Date and Time
Print Language: NEPALI
[2025-05-18 18:26] VITALS: BP 133/84
[2025-05-18 18:43] LABS: Glucose - Point of Care 91 mg/dl (70-99)
--- NOTE | 2025-05-18 19:32 | HPS.HSE ---
Family Physician
-
Family Physician: NOT KNOW UNKNOWN - PT DOES
Chief Complaint
-
Right foot infection
History of Present Illness
This is a 60-year-old male with kaw-piydkko-nmhxpodle diabetes complicated by diabetic neuropathy presenting to the emergency department with worsening right foot infection.
Patient is status post right great toe amputation several months ago for osteomyelitis secondary to diabetic foot ulcer. He has been well-controlled on his diabetes with metformin. He reports that 3 days ago he developed a right foot blister. He
was seen by wound care and was on local wound treatment was applied. However over the ensuing 3 days he developed darkening central spot at the ball of the right foot with increasing redness and swelling of the entire foot. He reports minimal
pain. He has not had any fevers or chills. He denies any trauma.
In the emergency department he was afebrile, blood pressure was 130/80 with a pulse of 82 and he was satting 90% on room air.
White count was 7.3, hemoglobin and platelets were normal. Electrolytes BUN and creatinine were normal. Glucose was 80. X-ray of the foot shows no radiographic evidence of osteomyelitis. No foreign body noted.
Medical History
Past Medical History
Past Medical History: Reports Other
Additional Past Medical History:
Right lower extremities DVT
Type 2 diabetes
Hyperlipidemia
Past Surgical History: Reports Other
Additional Past Surgical History:
Tonsillectomy
Hydrocele repair
Social History
Tobacco: Smoker (Cigars occasionally)
Alcohol: Occasional
Drug: None
Family History
Family History: Not pertinent
Allergies / Home Medications
Allergies reflects when Allergies were last updated in [employer].
Home Medications with original date entered in [employer]
Allergy/Medication List:
Allergies
Allergy/AdvReac Type Severity Reaction Status Date / Time
Penicillins Allergy Unknown Verified 05/18/25 14:52
Home Medications
atorvastatin 10 mg tablet (Lipitor) 10 mg PO DAILY High Cholesterol 07/14/23
dabigatran etexilate 150 mg capsule (Pradaxa) 150 mg PO BID Blood clot prevention/tx #60 caps 12/08/23
metformin 500 mg tablet 500 mg PO BID@0800,1700 Diabetes #60 tabs 12/08/23
Review of Systems
-
Constitutional: Reports No Symptoms
EENT: Reports No Symptoms
Respiratory: Reports No Symptoms
Cardiac: Reports No Symptoms
Abdomen/GI: Reports No Symptoms
: Reports No Symptoms
Musculoskeletal: Reports No Symptoms
Skin: Reports Other (Right foot wound)
Neurological: Reports No Symptoms
Endocrine: Reports No Symptoms
Hematologic/Lymphatic: Reports No Symptoms
Psych: Reports No Symptoms
Physical Exam
Vital Signs
Vital Signs
Temp Pulse Resp BP Pulse Ox
98.8 F 82 20 133/84 98
05/18/25 14:51 05/18/25 18:26 05/18/25 18:26 05/18/25 18:26 05/18/25 18:26
Physical Exam
General: Well Developed, Well Nourished and No Apparent Distress
HEENT: NormoCephalic, Moist mucous membranes and Atraumatic
Respiratory: Clear
Cardiac: S1/S2 and Regular Rhythm; No Murmur or Rub
GI: Soft, Non Tender, Non Distended and Normal Bowel Sounds; No Organomegaly
Rectal: Deferred by Provider
Musculoskeletal: No Clubbing, No Cyanosis and No Edema
Skin: Rash and Other (Right foot ulcer to the plantar aspect of the ball of the foot with surrounding erythema, tenderness and swelling to the ankle. Pulses intact.)
Neuro: AO x 3 and Nonfocal/grossly intact
Psych: Calm
Laboratory Results
-
05/18/25 15:00
05/18/25 15:00
Laboratory Results
Total Bilirubin 0.4 mg/dl (0.2-1.3) 05/18/25 15:00
AST 23 U/L (17-59) 05/18/25 15:00
ALT 19 U/L (0-50) 05/18/25 15:00
Alkaline Phosphatase 89 U/L (38-126) 05/18/25 15:00
Data Reviewed
-
Diagnostic Radiology: Report Reviewed by me
Lab Data: Labs Reviewed by me
Old Records: Reviewed
Impression/Plan
-
IMPRESSION:
60-year-old with past medical history of mwa-agcijih-hgkpvyfmt diabetes complicated by neuropathy, DVT on anticoagulation, history of prior right foot osteomyelitis status post opposition of the great toe presenting to the emergency department with
diabetic foot ulcer. No signs of systemic infection. X-ray without foreign body and no evidence of osteomyelitis. Patient does have significant evidence of cellulitis surrounding the ulcer.
PLAN:
Diabetic ulcer - Right foot ulcer at the distal 1st metatarsal area. Local cellulitis without findings. Xray negative for obvious osteo. D/w Dr. Logan.
- admit to med/surg
- mri in am, check esr, crp
- npo after midnight
- hold anticoagulation
- continue vancomycin for now
- podiatry consult
- ID consult
DM 2
- on metformin 500. Continue
- sliding scale insulin
- continue statin
DVT - holding dabigatran tonight pending surgery evaluation, last dose in am, - s/q lovenox while on hold
Code status - Full Code
[2025-05-18] MEDS: VANCOCIN 540 MG IV (19:48)
[2025-05-18 22:10] VITALS: BP 138/84
--- NOTE | 2025-05-18 22:19 | PHA.VAN.IN ---
Assessment
- Assessment
Renal Function: Appears similar to baseline
AUC Dosing Plan
- Dosing Variables
Dosing Weight (kg): 70.6
Dosing CrCl (ml/min): 103
Vd coefficient (L/kg): 0.7
- Empiric Dosing
Initial / Loading Dose: 2000 MG IV ~ 1950
Maintenance Regimen: 1000 MG IV Q12H
Estimated AUC (mcg*h/mL): 470.5
Estimated Peak (mcg*h/mL): 30.7
Estimated Trough (mcg/ml): 11.4
Estimated Half Life (H): 7.7
- Monitoring
No levels ordered at this time: Consider levels in next few days
Pharmacokinetics Vancomycin I
- -
Patient Age: 60
Patient Sex: Male
Vancomycin Day #: 1
Indication: Diabetic Foot
Requesting Provider: Dr Mandie Robert
Pertinent Antimicrobial Allergies:
penicillins w. unkown reaction.
Height / Weight:
Height 5 ft 6 in
Actual Weight 70.6 kg
Pertinent Past Medical History: NIDM complicated by diabetic neuropathy presenting w. right foot infection
- Vital Signs / Lab Results
Temp Pulse Resp BP Pulse Ox
98.8 F 82 20 133/84 98
05/18/25 14:51 05/18/25 18:26 05/18/25 18:26 05/18/25 18:26 05/18/25 18:26
Lab Results - Hematology
05/18/25
15:00
WBC 7.3
Lab Results - Chemistry
05/18/25
15:00
BUN 17
Creatinine 0.7
Albumin 4.1
[2025-05-18 23:00] VITALS: BP 119/74
--- NOTE | 2025-05-19 02:29 | TRANSFER ---
Pt transferred to 3W from ed, ambulated from stretcher to hospital bed. AAOx3, oriented to room, call perera within reach, plan of care ongoing.
[2025-05-19] MEDS: VANCOCIN 200 IV (05:43)
[2025-05-19 06:36] LABS: Glucose - Point of Care 112 mg/dl (70-99)
[2025-05-19 07:28] LABS: Hematocrit 36.0 % (39.0-52.0); Hemoglobin 11.7 g/dL (13.0-18.0); Mean Corp Hgb Conc. 32.5 g/dL (33.0-37.0); Mean Corpuscular Volume 86.5 fL (80.0-94.0); Platelet Count 147 10^3/uL (130-400); Red Cell Dist. Width 12.8 % (11.5-14.5)
[2025-05-19 07:47] VITALS: BP 137/92
--- NOTE | 2025-05-19 08:03 | W.PN.UPDATE ---
Update Note
Progress Note Update
60M PMHx DM and prior amputation presents with R sub MT head pressure wound to subq and localized cellulitis.
- no intervention at this time, resume diet
- patient known to [facility], will defer to
[2025-05-19 08:17] LABS: INR 1.20; PT 15.7 Sec (11.4-14.6)
[2025-05-19] MEDS: GLUCOPHAGE 500 MG PO ×2 (08:28→17:18)
[2025-05-19] MEDS: LIPITOR 10 MG PO (08:28)
[2025-05-19 08:29] LABS: Glucose - Point of Care 94 mg/dl (70-99)
[2025-05-19] MEDS: NOVOLOG FLEXPEN-LOW RESISTANCE SC ×2 (08:30→17:00)
[2025-05-19 09:25] LABS: Blood Urea Nitrogen 13 mg/dl (9-20); Calcium 9.1 mg/dl (8.4-10.2); Carbon Dioxide 29 mmol/L (22-30); Chloride 108 mmol/L (98-107); Estimated Creatinine Clearance 103 ml/min; Glucose 105 mg/dl (70-99); Magnesium 1.9 mg/dl (1.6-2.3); Potassium 4.0 mmol/L (3.5-5.1); Sodium 140 mmol/L (135-145); eGFR > 60.00
--- NOTE | 2025-05-19 09:38 | PHA.VAN.FU ---
Vancomycin Assessment / Plan
- Assessment
Renal Function: Stable
WBC's are: WNL
In the past 24 hrs, patient has been: Afebrile
- Dosing Plan
Continue: Vanc 1000mg Q12H
- Monitoring Plan
No level(s) ordered at this time: consider levels in next few days
- Follow Up
Pharmacy will continue to follow.
Vancomycin Follow UP
- -
Patient Age: 60
Patient Sex: Male
Vancomycin Day #: 2
Indication: Diabetic Foot
Requesting Provider: Dr Mandie Robert
Pertinent Antimicrobial Allergies:
penicillins - unknown
Height / Weight:
Height 5 ft 6 in
Actual Weight 70.6 kg
Pertinent Past Medical History: DM2
- Vital Signs / Lab Results
Temp Pulse Resp BP Pulse Ox
98.4 F 81 14 137/92 97
05/19/25 07:47 05/19/25 07:47 05/19/25 07:47 05/19/25 07:47 05/19/25 07:47
Lab Results - Hematology
05/18/25 05/19/25
15:00 06:58
WBC 7.3 5.1
Lab Results - Chemistry
05/18/25 05/19/25
15:00 06:58
BUN 17 13
Creatinine 0.7 0.7
Estimated Creat Clear 103
Albumin 4.1
--- NOTE | 2025-05-19 09:54 | CM ---
Patient seen at bedside
IA completed
dx: diabetic foot ulcer
PMH: ldv-votcyns-brkpymcca diabetes complicated by diabetic neuropathy
status post right great toe amputation several months ago for osteomyelitis secondary to diabetic foot ulcer
PLOF: independent
Denies DME
has had [facility] in past, denies rehab
PCP: Dr. Sequeira at the [facility]
PHARMACY: [address], [place]
PLAN: anticipate home, watch for VN needs
[2025-05-19 11:39] LABS: Glucose - Point of Care 179 mg/dl (70-99)
--- NOTE | 2025-05-19 11:40 | CON.ID ---
Consultation
-
Date/Time Consultation Requested: May 18, 2025 3761
Date/Time Consultation Performed: May 19, 2025 1140
Requesting Provider: Dr. Mike Lovett
Performing Provider: Dr. Josi Valdez
Reason for Consultation: Diabetic foot ulcer
Chief Complaint / Past History
Chief Complaint
Foot infection
History of Present Illness
60-year-old male with history of diabetes mellitus, neuropathy, right great toe osteomyelitis status post amputation 2023 who presented to the ER yesterday due to increased edema and redness of the right foot. Patient reports last week he developed
blister at the ball of his right foot. 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 Over the weekend his foot started to become swollen and red. No fevers or chills. He was started on IV vancomycin. MRI today showed cellulitis
without osteomyelitis. Patient reports that the foot swelling and redness somewhat decreased today. He states he had penicillin allergy when he was a child which he could not recall the reaction. He is unsure whether or not he ever had
cephalosporins in the past.
Past History
Additional Past Medical History:
DM
Neuropathy
Hx DVT
Right hallux osteo s/p amp
Additional Past Surgical History:
Tonsillar
Pilonidal cyst
Allergy History:
Penicillins Allergy (Verified 05/18/25 14:52)
Unknown
Medications Reviewed: Yes
Current Antibiotics:
Vancomycin
Social History
Tobacco: Other (Occasional cigar use)
Alcohol: None
Drug: None
Personal: Single
Living: Alone
Employment: Employed
Family History
Family History: Not Pertinent
Review of Systems
Review of Systems
General: Negative Fever, Chills or Change in Appetite
HEENT: Negative Sinus Problems or Headache
Cardiovascular: Negative Chest Pain or Dyspnea
Respiratory: Dyspnea and Cough
Gasteroenterology: Negative Nausea, Vomiting or Diarrhea
Genital / Urological: Negative Dysuria or Flank Pain
Endocrine: Negative Weakness
All systems: All other systems were reviewed and were negative
Vital Signs
Temp Pulse Resp BP Pulse Ox
98.4 F 81 14 137/92 97
05/19/25 07:47 05/19/25 07:47 05/19/25 07:47 05/19/25 07:47 05/19/25 11:03
Physical Exam
Physical Exam
Constitutional: No Acute Distress and Comfortable
Eyes: No Conjunctival Hemorrhage and Sclera Anicteric
Cardiovascular: Regular Rate and S1/S2
Pulmonary: Clear
Gastrointestinal: Soft, Non Tender, Non Distended and Normal Bowel Sounds
Genito-Urinary: Negative CVA Tenderness
Extremities: Edema (Right foot), Erythema (Dorsum of right foot and lower mata/warm) and Pulses (Strong pedal pulses)
Wound: Other (Right foot plantar sub-metatarsal between the 1st and 2nd dry wound without deep probe)
Neurological: AO x 3
Lab / Diagnostic Study Results
05/19/25 06:58
05/19/25 06:58
Abs Immat Gran (auto) 0.0 10^3/uL (0-0.05) 05/18/25 15:00
Absolute Neuts (auto) 5.1 10^3/uL (1.4-6.5) 05/18/25 15:00
Absolute Lymphs (auto) 1.3 10^3/uL (1.2-3.4) 05/18/25 15:00
Absolute Monos (auto) 0.7 10^3/uL (0.1-0.6) H 05/18/25 15:00
Absolute Basos (auto) 0.1 10^3/uL (0-0.2) 05/18/25 15:00
Immature Gran % 0.3 % (0-0.5) 05/18/25 15:00
Neutrophils % 70.0 % (42.2-75.2) 05/18/25 15:00
Lymphocytes % 17.2 % (20.5-51.1) L 05/18/25 15:00
Monocytes % 8.9 % (1.7-9.3) 05/18/25 15:00
Eosinophils % 2.8 % (0-6) 05/18/25 15:00
Basophils % 0.8 % (0-2) 05/18/25 15:00
ESR 26 mm/hour (0-20) H 05/19/25 06:58
PT 15.7 Sec (11.4-14.6) H 05/19/25 06:58
INR 1.20 05/19/25 06:58
Microbiology Results
Micro:
05/18/25 19:42 Wound Culture - Pending
Foot - Right Gram Stain - Pending
05/19/25 MRI RLE: Mild diffuse subcutaneous edema throughout the dorsal forefoot. No loculated fluid collections. No overt MR evidence for active osteomyelitis. Focal marrow edema like signal within the third metatarsal head likely related to
degenerative and/or stress changes.
Assessment / Plan
# Acute right foot cellulitis
# Diabetes mellitus with neuropathy
# Penicillin allergy
- MRI no underlying osteomyelitis
- DC IV vancomycin
-Challenge with IV cefazolin
-Anticipate DC home tomorrow on p.o. antibiotic, if cellulitis responds to cefazolin.
Care Review
Plan reviewed with: Physician (Dr. Lovett)
--- NOTE | 2025-05-19 12:04 | W.PN.HOSP.TC ---
Today's Communication/Plan
-
Await ID input
Assessment / Plan
Assessment / Plan
Gen-AAOx3, NAD
HEENT-NC, AT, anicteric, clear oral mm
Neck-supple
CV-reg, no M, +S1/S2
Lungs-clear B/L
Abd-soft, NT, ND
Ext-no edema
Musculoskeletal-no cyanosis, clubbing, right foot dressing intact
Skin-warm and dry
Neuro-grossly non-focal
Psych-calm, cooperative
Right diabetic foot infection -along plantar arch as noted by podiatry.
MRI shows mild diffuse subcutaneous edema throughout the dorsal forefoot without loculated fluid collection, no overt evidence of active osteomyelitis.
Podiatry does not recommend surgical intervention.
ESR was 26, CRP pending. No signs or symptoms of sepsis.
He is known to [facility]. Updated Dr. Devang Gill to follow-up as outpatient.
ID input requested, waiting for consult.
Anticipate discharge later today if cleared by ID.
DM 2 without hyperglycemia -glucose 105 this morning. Hemoglobin A1c 5.9%. He is on metformin.
Hyperlipidemia -atorvastatin.
History of RLE DVT (March 2023) -patient states he is no longer on anticoagulation.
Full code
Anticipated Discharge: Today
Subjective/Interval History
-
Date of Service: May 19, 2025
Patient seen and examined. No complaints. Frustrated over being in the hospital.
Objective Data
-
Labs:
Laboratory Results
05/19/25
06:58
WBC 5.1
Hgb 11.7 L
Hct 36.0 L
Plt Count 147
PT 15.7 H
INR 1.20
Sodium 140
Potassium 4.0
Chloride 108 H
Carbon Dioxide 29
BUN 13
Creatinine 0.7
Glucose 105 H
Calcium 9.1
Vital Signs:
Vital Signs
Temp Pulse Resp BP Pulse Ox
98.4 F 81 14 137/92 97
05/19/25 07:47 05/19/25 07:47 05/19/25 07:47 05/19/25 07:47 05/19/25 11:03
Review of Systems
-
History Source: Patient
All other systems: Reviewed and negative
[2025-05-19 12:08] LABS: Glycohemoglobin (HgbA1c) 5.9 % (4.0-5.6)
[2025-05-19 12:19] LABS: C-Reactive Protein 22.70 mg/L (0.0-10.00)
[2025-05-19] MEDS: NOVOLOG FLEXPEN-LOW RESISTANCE 1 UNITS SC (13:41)
[2025-05-19] MEDS: ANCEF 10 IV ×2 (13:42→22:26)
[2025-05-19 15:00] VITALS: BP 112/75
[2025-05-19 16:58] LABS: Glucose - Point of Care 134 mg/dl (70-99)
[2025-05-19] MEDS: CLARITIN 10 MG PO (17:18)
[2025-05-19 21:44] LABS: Glucose - Point of Care 108 mg/dl (70-99)
[2025-05-19 23:46] VITALS: BP 100/55
[2025-05-20] MEDS: ANCEF 10 IV (06:13)
[2025-05-20 07:00] VITALS: BP 141/93
[2025-05-20 07:46] LABS: Glucose - Point of Care 120 mg/dl (70-99)
[2025-05-20] MEDS: NOVOLOG FLEXPEN-LOW RESISTANCE SC (07:48)
--- NOTE | 2025-05-20 09:05 | W.PN.ID1 ---
Date of Service
Date of Service: May 20, 2025
Today's Communication
- can transition cefazolin to cephalexin 500mg po qid through 05/27.
Assessment / Plan
# Acute right foot cellulitis, improving
# Diabetes mellitus with neuropathy
# Penicillin allergy - tolerating cefazolin
- MRI no underlying osteomyelitis
- can transition cefazolin to cephalexin 500mg po qid through 05/27.
Chief Complaint
-: Cellulitis
Subjective / Review of Systems
tolerating cefazolin. Feels well.
Vital Signs / Physical Exam
Vital Signs
Vital Signs
Temp Pulse Resp BP Pulse Ox
98.1 F 79 17 141/93 98
05/20/25 07:00 05/20/25 07:00 05/20/25 07:00 05/20/25 07:00 05/20/25 07:00
Physical Exam
Constitutional: No Acute Distress
Extremities: Edema (Right foot edema significantly reduced), Erythema (Right foot dorsum minimal erythema/warm) and Pulses (strong pedal pulses)
Wound: Other (right plantar submet wound dry no surrounding erythema)
Neurological: AO x 3
Objective Data
Lab Data
Lab Results
05/19/25 06:58
05/19/25 06:58
ESR 26 mm/hour (0-20) H 05/19/25 06:58
PT 15.7 Sec (11.4-14.6) H 05/19/25 06:58
INR 1.20 05/19/25 06:58
Estimated Creat Clear 103 ml/min 05/19/25 06:58
Total Bilirubin 0.4 mg/dl (0.2-1.3) 05/18/25 15:00
AST 23 U/L (17-59) 05/18/25 15:00
ALT 19 U/L (0-50) 05/18/25 15:00
Alkaline Phosphatase 89 U/L (38-126) 05/18/25 15:00
C-Reactive Protein 22.70 mg/L (0.0-10.00) H 05/19/25 06:58
Most recent labs reviewed.
Micro Results:
05/18/25 19:42 Wound Culture - Pending
Foot - Right Gram Stain - Preliminary
05/19/25 MRI RLE: Mild diffuse subcutaneous edema throughout the dorsal forefoot. No loculated fluid collections. No overt MR evidence for active osteomyelitis. Focal marrow edema like signal within the third metatarsal head likely related to
degenerative and/or stress changes.
Care Review
Plan reviewed with: Physician (Dr Lovett)
[2025-05-20] MEDS: LIPITOR 10 MG PO (09:09)
[2025-05-20] MEDS: GLUCOPHAGE 500 MG PO (09:09)
[2025-05-20] MEDS: CLARITIN 10 MG PO (09:09)
--- NOTE | 2025-05-20 09:45 | W.PN.HOSP.TC ---
Today's Communication/Plan
-
Discharge
Assessment / Plan
Assessment / Plan
Gen-AAOx3, NAD
HEENT-NC, AT, anicteric, clear oral mm
Neck-supple
CV-reg, no M, +S1/S2
Lungs-clear B/L
Abd-soft, NT, ND
Ext-no edema
Musculoskeletal-no cyanosis, clubbing, right foot dressing intact
Skin-warm and dry
Neuro-grossly non-focal
Psych-calm, cooperative
Right diabetic foot cellulitis -along plantar arch as noted by podiatry.
MRI shows mild diffuse subcutaneous edema throughout the dorsal forefoot without loculated fluid collection, no overt evidence of active osteomyelitis.
Podiatry does not recommend surgical intervention.
ESR was 26, CRP pending. No signs or symptoms of sepsis.
He is known to [facility] practice. Updated Dr. Devang Glil to follow-up as outpatient.
Transition to cephalexin for 1 more week as per ID. Okay to discharge.
DM 2 without hyperglycemia -glucose 120 this morning. Hemoglobin A1c 5.9%. He is on metformin.
Hyperlipidemia -atorvastatin.
History of RLE DVT (March 2023) -patient now tells me that he is on dabigatran, will continue.
Full code
Dispo -medically stable for discharge today. Outpatient follow-up with podiatry and PCP.
32 minutes spent in discharge process.
Anticipated Discharge: Today
Subjective/Interval History
-
Date of Service: May 20, 2025
Patient seen and examined, no complaints.
Objective Data
-
Vital Signs:
Vital Signs
Temp Pulse Resp BP Pulse Ox
98.1 F 79 17 141/93 98
05/20/25 07:00 05/20/25 07:00 05/20/25 07:00 05/20/25 07:00 05/20/25 07:00
I&O
05/19/25 05/20/25 05/21/25
06:59 06:59 06:59
Intake Total 1679
Balance 1679
Review of Systems
-
History Source: Patient
All other systems: Reviewed and negative
--- NOTE | 2025-05-20 09:50 | W.DS.TRANS ---
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
-
Discharge Instructions:
Discharge Diagnosis/Procedures Right foot plantar cellulitis
Diet Diabetic, Carb Controlled
Activity Other activity
Additional Activity You may walk with offloading wedge Darco shoe on
the right foot
Driving Restrictions As prior to admission
Bathing Restrictions None
Instructions:
Stand-Alone Forms:
Changes to Home Medications: No
Discharge Medications:
DC Medications w/original date entered in [employer]
atorvastatin 10 mg tablet (Lipitor) 10 mg PO DAILY High Cholesterol 07/14/23
acetaminophen 500 mg tablet (Tylenol Extra Strength) 1,000 mg PO BIDPRN PRN mild pain 12/03/23
dabigatran etexilate 150 mg capsule (Pradaxa) 150 mg PO BID Blood clot prevention/tx #60 caps 12/08/23
metformin 500 mg tablet 500 mg PO BID@0800,1700 Diabetes #60 tabs 12/08/23
cephalexin 500 mg tablet 500 mg PO QID #28 tabs 05/20/25
Home Medication Changes
Pending Results: No
[2025-05-20] MEDS: PRADAXA 150 MG PO (09:58)
--- NOTE | 2025-05-20 10:31 | CM ---
Patiient seen at bedside
offered VN - declined
states going back to work
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
PLAN: Home, no needs
drove self
== END 2025-05-20 10:56 | disposition home or self-care (01) | DRG 638 ==
LOC: 3 WEST ACU 20:30
PROVIDERS: Emergency Medicine; ADMITTING PHYSICIAN Internal Medicine; ATTENDING PHYSICIAN Hospitalist; EMERGENCY PHYSICIAN Emergency Medicine; OTHER PHYSICIAN Internal Medicine Infectious Disease; OTHER PHYSICIAN Student in an Organized Health Care Education/Training Program
DX: E11.628 Type 2 diabetes mellitus with other skin complications (principal); L03.115 Cellulitis of right lower limb; E11.40 Type 2 diabetes mellitus with diabetic neuropathy, unspecified; E78.5 Hyperlipidemia, unspecified; F17.290 Nicotine dependence, other tobacco product, uncomplicated; L89.899 Pressure ulcer of other site, unspecified stage; Z89.411 Acquired absence of right great toe; Z88.0 Allergy status to penicillin; Z79.84 Long term (current) use of oral hypoglycemic drugs; Z86.718 Personal history of other venous thrombosis and embolism
CPT/HCPCS: 73630; 73720; 80048; 80053; 82962; 83036; 83735; 85025; 85027; 85610; 85652; 86140; 87070; 87077; 87147; 87186; 87205; 96365; 96366; 99284; A9575